=== PATIENT | female | born 1935 | race Caucasian/White ===

== ENCOUNTER 2018-01-17 03:57 | Emergency (ER) | payer MEDICARE, BC ==
[2018-01-17] MEDS ORDERED: cloNIDine 0.1 MG Tab PO ONE (04:22)
--- NOTE | 2018-01-17 04:22 | EDM.PDOC ---
ED HPI GENERAL MEDICAL PROBLEM - General Chief Complaint: Cardiovascular Problem Stated Complaint: HIGH BLOOD PRESSURE [id number] Time Seen by Provider: 01/17/18 04:19 Source of Information: Reports: Patient History Limitations: Reports: No Limitations - History of Present Illness INITIAL COMMENTS - FREE TEXT/NARRATIVE: states it all started 2 days ago when gardening bent down got dizzy head felt fuzzy. took BP can it was high. been taking BP since and always high. tonight got up to 200. denies CP/SOB/SANON. take sno Rx. 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 ED EXAM, GENERAL - Physical Exam Exam: See Below Exam Limited By: No Limitations General Appearance: Alert, WD/WN, No Apparent Distress Eye Exam: Bilateral Eye: PERRL (pupils ess ER @ 4mm) Ears: Hearing Grossly Normal Throat/Mouth: Normal Voice, No Airway Compromise Head: Atraumatic Neck: Non-Tender, Full Range of Motion Respiratory/Chest: No Respiratory Distress Cardiovascular: Regular Rate, Rhythm GI/Abdominal: Soft, Non-Tender Neurological: Alert, Oriented, Normal Cognition, Normal Gait, No Motor/Sensory Deficits Psychiatric: Normal Affect, Normal Mood Skin Exam: Warm, Dry, Normal Color Lymphatic: No Adenopathy Course - Vital Signs Last Recorded V/S: Last Vital Signs Temp 36.2 C 01/17/18 04:03 Pulse 63 01/17/18 04:25 Resp 18 01/17/18 04:03 BP 162/71 H 01/17/18 04:28 Pulse Ox 99 01/17/18 04:25 - Orders/Labs/Meds Orders: Active Orders 24 hr Category Date Time Status EKG Documentation Completion [RC] URGENT Care 01/17/18 04:05 Active COMPREHENSIVE METABOLIC PN,CMP [CHEM] Stat Lab 01/17/18 04:20 Results TROPONIN I [CHEM] Stat Lab 01/17/18 04:20 Results Labs: Laboratory Tests 01/17/18 01/17/18 Range/Units 04:20 04:20 WBC 4.7 L (5.0-10.0) 10^3/uL RBC 3.80 L (4.2-5.4) 10^6/uL Hgb 12.5 (12.0-16.0) g/dL Hct 37.8 (37.0-47.0) % MCV 99.5 (80-100) fL MCH 32.9 (27.0-34.0) pg MCHC 33.1 (33.0-35.0) g/dL Plt Count 177 (150-450) 10^3/uL Neut % (Auto) 52.3 (42.2-75.2) % Lymph % (Auto) 33.1 (20.5-50.1) % [place] % (Auto) 9.4 H (2-8) % Eos % (Auto) 4.1 H (1.0-3.0) % Baso % (Auto) 1.1 H (0.0-1.0) % Sodium 140 (135-145) mmol/L Potassium 4.3 (3.6-5.0) mmol/L Chloride 104 (101-111) mmol/L Carbon Dioxide 30.0 (21.0-31.0) mmol/L Anion Gap 10.3 BUN 14 (7-18) mg/dL Glucose 80 (74-105) mg/dL Calcium 9.1 (8.4-10.2) mg/dl Total Bilirubin 0.8 (0.2-1.0) mg/dL AST 19 (10-42) IU/L ALT 20 (10-60) IU/L Alkaline Phosphatase 46 (42-121) IU/L Troponin I < 0.02 (0.00-0.02) ng/ml Total Protein 6.3 L (6.7-8.2) g/dl Albumin 4.1 (3.2-5.5) g/dl Globulin 2.2 Albumin/Globulin Ratio 1.86 Meds: Medications Discontinued Medications Generic Name Dose Route Start Last Admin Trade Name Colin PRN Reason Stop Dose Admin Clonidine HCl 0.1 mg 01/17/18 04:22 01/17/18 04:28 Catapres PO 01/17/18 04:23 0.1 mg ONETIME ONE Administration - Re-Assessments/Exams Free Text/Narrative Re-Assessment/Exam: 01/17/18 04:54 s/p catapress BP 126/83. pt feels fine without c/o Departure - Departure Time of Disposition: 04:54 Disposition: Home, Self-Care 01 Condition: Good Clinical Impression: Hypertension Qualifiers: Hypertension type: unspecified Qualified Code(s): I10 - Essential (primary) hypertension Instructions: Hypertension, [id number] Forms: ED Department Discharge Additional Instructions: 1) monitor BP 3 times daily 2) recheck if there is any change or concern 3) see clinic Thursday for follow up rx given; catapress0.1mg daily x 6 - My Orders Last 24 Hours: My Active Orders 01/17/18 04:05 EKG Documentation Completion [RC] URGENT 01/17/18 04:20 COMPREHENSIVE METABOLIC PN,CMP [CHEM] Stat TROPONIN I [CHEM] Stat - Assessment/Plan Last 24 Hours: My Active Orders 01/17/18 04:05 EKG Documentation Completion [RC] URGENT 01/17/18 04:20 COMPREHENSIVE METABOLIC PN,CMP [CHEM] Stat TROPONIN I [CHEM] Stat
[2018-01-17 04:25] VITALS: BP 162/71
[2018-01-17 04:45] LABS: ANION GAP 10.3; CHLORIDE,CL 104 mmol/L (101-111); SODIUM,NA 140 mmol/L (135-145)
--- NOTE | 2018-01-18 16:46 | EKG ---
01/17/2018 - BRIAN HARRISON - TIME: 4:06 a.m. FINDINGS: As per my reading, sinus rhythm at 60. [facility] /[id number]
== END 2018-01-17 05:02 | disposition home or self-care (01) ==
LOC: DL.ED 03:57
DX: I10 Essential (primary) hypertension (principal); F17.210 Nicotine dependence, cigarettes, uncomplicated; Z88.2 Allergy status to sulfonamides
CPT/HCPCS: 36415; 80053; 84484; 85025; 93005; 93010; 99283; A9270

== ENCOUNTER 2020-02-15 10:12 | Day surgery (SDC) | payer MEDICARE, BC ==
[2020-02-15] MEDS ORDERED: Dexamethasone 4 MG/ML SDV IV ONE (10:13)
[2020-02-15] MEDS ORDERED: Midazolam 1 MG/ML 2 ML SDV IV ONE (10:13)
[2020-02-15] MEDS ORDERED: Sodium Chloride 0.9% 10 ML Syringe IV ONE (10:13)
[2020-02-15] MEDS ORDERED: Moxifloxacin 0.5% Ophth Soln 3 ML Bottle EYELF ONE (10:45)
[2020-02-15] MEDS ORDERED: Sodium Chloride 0.9% 10 ML Syringe FLUSH PRN (10:45)
[2020-02-15] MEDS ORDERED: Phenylephrine 10% Ophth Soln 5 ML Bot EYELF PRN (10:45)
[2020-02-15] MEDS ORDERED: Phenylephrine 10% Ophth Soln 5 ML Bot EYELF ONE (10:45)
[2020-02-15] MEDS ORDERED: Tropicamide 1% Ophth Soln 15 ML Bottle EYELF ONE (10:45)
[2020-02-15] MEDS ORDERED: Acetaminophen 325 MG Tab PO PRN (10:45)
[2020-02-15] MEDS ORDERED: Dilation Soln 1 EA EACH EYELF ONE (10:45)
[2020-02-15] MEDS ORDERED: Proparacaine 0.5% Ophth Soln 15 ML Bottle EYELF ONE (10:45)
[2020-02-15] MEDS ORDERED: Ondansetron 4 MG/2 ML SDV IVPUSH PRN (10:45)
[2020-02-15] MEDS ORDERED: Povidone-Iodine 5% Sterile Ophth Soln 30 ML Bottle EYELF ONE ×2 (10:45→11:22)
[2020-02-15] MEDS ORDERED: Timolol Maleate 0.5% Ophth Soln 5 ML Bottle EYELF ONE (10:45)
[2020-02-15 10:57] VITALS: PULSE 60
[2020-02-15] MEDS ORDERED: Apraclonidine 0.5% Ophth Soln 5 ML Bot EYELF ONE (11:22)
[2020-02-15] MEDS ORDERED: Diclofenac Sodium 0.1% Ophth Soln 5 ML Bottle EYELF ONE (11:22)
[2020-02-15] MEDS ORDERED: Lidocaine 1% 30 ML SDV ONE (11:22)
[2020-02-15] MEDS ORDERED: Tetracaine HCl/PF 0.5% 4 ML Bottle EYELF ONE (11:22)
[2020-02-15] MEDS ORDERED: Dexamethasone/Tobramycin 0.1-0.3% Ophth Oint 3.5 GM Tube EYELF ONE (11:23)
[2020-02-15] MEDS ORDERED: Chondroitin Sulfate/Hyaluronate Sodium Ophth Inj 0.75 ML Syringe EYELF ONE (11:23)
[2020-02-15] MEDS ORDERED: Balanced Salt Solution Ophth Irrig 500 ML Bottle IOCULAR ONE (11:23)
[2020-02-15] MEDS ORDERED: Vancomycin 500 MG SDV EYELF ONE (11:23)
[2020-02-15 12:17] VITALS: BP 123/66
--- NOTE | 2020-02-15 14:15 | OR ---
DATE: 02/15/2020 PREOPERATIVE DIAGNOSIS: Visually significant mixed cataract, left eye. POSTOPERATIVE DIAGNOSIS: Visually significant mixed cataract, left eye. PROCEDURE: Extracapsular cataract extraction with intraocular lens implant, left eye. ANESTHESIA: Topical/local MAC. COMPLICATIONS: None. INDICATION: Ms. Gonzales was seen in the clinic. She is unhappy with vision noticing a progressive change. Her examination revealed visually significant mixed cataract. I explained options, offered cataract surgery, and I explained risks, including, but not limited to, infection, retinal detachment, loss of vision, need for additional surgery, and risks associated with anesthesia, amongst others. We discussed implant options. She requested surgery with a toric implant. OPERATIVE DESCRIPTION: After informed consent was obtained and the risks, benefits, and alternatives were explained, the patient was brought to the operative suite and topical anesthesia was administered. The patient was then prepped and draped in the sterile fashion and attention was placed on the left eye. A sterile lid speculum was placed into the left eye to allow operative exposure. A full-thickness paracentesis was made in the temporal portion of the operative eye. Preservative-free lidocaine 0.1 mL was injected into the anterior chamber followed by viscoelastic. A full-thickness corneal incision was then made into the anterior chamber. A bent needle cystotome was used to create a small edgar in the anterior capsule. The capsulorrhexis forceps was then used to create a 360-degree curvilinear capsulorrhexis. The nucleus was then removed using a phacoemulsification handpiece and the remaining cortical material was then removed with irrigation and aspiration handpiece. Following removal of the cortical material, the capsular bag was then inspected and noted to be free of any holes or tears. Viscoelastic was then injected into the capsular bag and the intraocular lens was inserted into the capsular bag. The implant was oriented to correspond with preoperative corneal amaya made with the patient in the upright position. The viscoelastic material was then removed from both the anterior and posterior chambers and from behind the IOL. The lens and capsular bag were then reinspected. The IOL was well centered and the capsular bag intact. The wound and paracentesis sites were inspected and hydrated with balanced saline solution. Both were found to be self-sealing. The intraocular pressure was assessed digitally and found to be within normal range. A good red reflex was noted at the completion of the procedure. No complications occurred during the operation. At the completion of the procedure, Maxitrol, Voltaren, and Iopidine drops were placed into the operative eye. A sterile eye shield was placed over the operative eye and the patient was transported to the postoperative recovery area having tolerated the procedure well. Postoperative instructions were given along with a postoperative appointment. The patient was advised to call with any questions or concerns. [facility] /[id number]
== END 2020-02-15 12:18 | disposition home or self-care (01) ==
LOC: DL.SDS 10:12
PROVIDERS: ATTEND Ophthalmology
DX: H26.493 Other secondary cataract, bilateral (principal); F17.210 Nicotine dependence, cigarettes, uncomplicated; I10 Essential (primary) hypertension; F51.04 Psychophysiologic insomnia; Z79.899 Other long term (current) drug therapy
CPT/HCPCS: 00142; A9270-GY; J1100; J2001; J2250; J3370

== ENCOUNTER 2020-03-20 08:13 | Observation (INO) | payer MEDICARE, BC ==
[~2020-03-20 08:13] MED LIST: Sodium Chloride 0.9% 10 ML Syringe FLUSH PRN
[2020-03-20 09:24] LABS: ANION GAP 12.1 mEq/L (7-13)
[2020-03-20] MEDS ORDERED: Ondansetron 4 MG/2 ML SDV IVPUSH ONE (09:33)
[2020-03-20] MEDS ORDERED: Sodium Chloride 0.9% 1,000 ML IV ONE (09:36)
--- NOTE | 2020-03-20 09:42 | EDM.PDOC ---
ED HPI GENERAL MEDICAL PROBLEM - General Chief Complaint: Gastrointestinal Problem Stated Complaint: CALL IN Time Seen by Provider: 03/20/20 08:30 Source of Information: Reports: Patient, RN, RN Notes Reviewed History Limitations: Reports: No Limitations - History of Present Illness INITIAL COMMENTS - FREE TEXT/NARRATIVE: Patient presents to the ED via personal vehicle with complaints of nausea, vomiting, and diffuse rash. Per the patient the rash began about three weeks ago on her left leg, it then spread upward to her trunk and extremities. She received treatment for this rash two and half weeks ago, including Cephalexin and Prednisone, which she states made the rash worse. She relates the rash as itchy at times, but describes it as painful in nature. She denies changes to diet, lotions, soaps, or medications. She states she has been washing her clothes in clear water since her rash began. The patient relates her nausea and vomiting began one week ago. She denies cough, shortness of breath, fever, shaking chills, dysuria, hematuria, melena, hematochezia, or changes to her bowel/bladder patterns. She has not taken any medications for the nausea and vomiting. - Related Data Allergies Allergy/AdvReac Type Severity Reaction Status Date / Time Sulfa (Sulfonamide Allergy Rash Verified 02/14/20 13:05 Antibiotics) Home Meds: Home Meds Lisinopril/Hydrochlorothiazide [Lisinopril-Hctz 10-12.5 mg Tab] 1 each PO DAILY 04/11/19 [History] metOLazone [Metolazone] 5 mg PO DAILY 02/14/20 [History] Past Medical History - Past Health History Medical/Surgical History: Denies Medical/Surgical History HEENT History: Reports: Cataract, Impaired Vision Cardiovascular History: Reports: Hypertension Respiratory History: Reports: PE, Pneumonia, Recurrent Gastrointestinal History: Reports: None Genitourinary History: Reports: UTI, Recurrent 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: , 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 Neurological History: Reports: Other (See Below) Other Neuro History: insomnia Psychiatric History: Reports: None Endocrine/Metabolic History: Reports: Osteopenia Hematologic History: Reports: None Immunologic History: Reports: None Oncologic (Cancer) History: Reports: Uterine Dermatologic History: Reports: None - Infectious Disease History Infectious Disease History: Reports: Chicken Pox, Shingles - Past Surgical History HEENT Surgical History: Reports: None Cardiovascular Surgical History: Reports: None GI Surgical History: Reports: None Female Surgical History: Reports: D&C, Hysterectomy, Other (See Below) Other Female Surgeries/Procedures: bladder surg Neurological Surgical History: Reports: Laminectomy Musculoskeletal Surgical History: Reports: Shoulder Replacement, Other (See Below) Other Musculoskeletal Surgeries/Procedures:: knee and toes surg Social & Family History - Family History Family Medical History: Noncontributory - Tobacco Use Tobacco Use Status *Q: Never Tobacco User - Caffeine Use Caffeine Use: Reports: Coffee Caffeine Use Comment: 8 oz - Recreational Drug Use Recreational Drug Use: No ED ROS GENERAL - Review of Systems Review Of Systems: Comprehensive ROS is negative, except as noted in HPI. ED EXAM, GI/ABD - Physical Exam Exam: See Below Exam Limited By: No Limitations General Appearance: Alert, WD/WN, No Apparent Distress Eyes: Bilateral: EOMI Throat/Mouth: Normal Inspection, Normal Voice, No Airway Compromise Head: Atraumatic, Normocephalic Neck: Normal Inspection, Supple, Non-Tender Respiratory/Chest: No Respiratory Distress, Lungs Clear, Normal Breath Sounds, No Accessory Muscle Use, Chest Non-Tender Cardiovascular: Normal Peripheral Pulses, Regular Rate, Rhythm, No Edema, No Gallop, No Murmur, No Rub GI/Abdominal Exam: Normal Bowel Sounds, Soft, Non-Tender, No Distention, No Mass, Pelvis Stable (Female) Exam: Deferred Rectal (Female) Exam: Deferred Back Exam: Normal Inspection. No: CVA Tenderness (L), CVA Tenderness (R) Extremities: Normal Range of Motion, No Pedal Edema, Normal Capillary Refill Neurological: Alert, Oriented, CN II-XII Intact, No Motor/Sensory Deficits Skin Exam: Dry, Erythema (Surrounding rash), Rash (Diffuse macular rash to all extremities and back; ) Course - Vital Signs Last Recorded V/S: Last Vital Signs Temp 96.2 F L 03/20/20 08:14 Pulse 83 03/20/20 08:14 Resp 14 03/20/20 08:14 BP 129/71 03/20/20 08:14 Pulse Ox 94 L 03/20/20 08:14 - Orders/Labs/Meds Orders: Active Orders 24 hr Category Date Time Status Admission Diagnosis [ADT] Routine ADT 03/20/20 10:28 Ordered Admission Status [Patient Status] [ADT] Routine ADT 03/20/20 10:28 Active Peripheral IV Care [RC] . DIRECTED Care 03/20/20 08:08 Active CULTURE BLOOD [BC] Stat Lab 03/20/20 08:52 Received CULTURE BLOOD [BC] Stat Lab 03/20/20 08:57 Received UA W/CARMENCITA RFLX IF INDICATED [URIN] Stat Lab 03/20/20 08:07 Ordered Sodium Chloride 0.9% [Normal Saline] 1,000 ml Med 03/20/20 09:36 Active IV .BOLUS Blood Culture x2 Reflex Set [OM.PC] Stat Oth 03/20/20 08:07 Ordered Isolation [COMM] Routine Oth 03/20/20 09:19 Active Peripheral IV Insertion Adult [OM.PC] Stat Oth 03/20/20 08:07 Ordered Medication Orders Sodium Chloride (Normal Saline) 1,000 mls @ 999 mls/hr IV .BOLUS ONE Stop: 03/20/20 10:36 Last Admin: 03/20/20 09:51 Dose: 999 mls/hr Documented by: JULIANA Labs: Laboratory Tests 03/20/20 03/20/20 03/20/20 Range/Units 08:07 08:52 08:52 WBC (5.0-10.0) 10^3/uL RBC (4.2-5.4) 10^6/uL Hgb (12.0-16.0) g/dL Hct (37.0-47.0) % MCV (80-100) fL MCH (27.0-34.0) pg MCHC (33.0-35.0) g/dL Plt Count (150-450) 10^3/uL Neut % (Auto) (42.2-75.2) % Lymph % (Auto) (20.5-50.1) % [place] % (Auto) (2-8) % Eos % (Auto) (1.0-3.0) % Baso % (Auto) (0.0-1.0) % Sodium 135 L (136-145) mmol/L Potassium 4.1 (3.5-5.1) mmol/L Chloride 98 (98-107) mmol/L Carbon Dioxide 29 (21-32) mmol/L Anion Gap 12.1 (7-13) mEq/L BUN 33 H (7-18) mg/dL Creatinine 1.20 H (0.55-1.02) mg/dL Est Cr Clr Drug Dosing 28.24 mL/min Estimated GFR (MDRD) 43 BUN/Creatinine Ratio 27.5 (No establ ref range) Glucose 99 (74-99) mg/dL Lactic Acid 1.0 (0.4-2.0) mmol/L Calcium 8.9 (8.5-10.1) mg/dL Phosphorus 4.1 (2.6-4.7) mg/dL Magnesium 2.1 (1.8-2.4) mg/dL Total Bilirubin 0.5 (0.2-1.0) mg/dL AST 10 L (15-37) U/L ALT 14 (14-59) U/L Alkaline Phosphatase 53 (46-116) U/L Total Protein 6.2 L (6.4-8.2) g/dL Albumin 3.3 L (3.4-5.0) g/dL Globulin 2.9 Albumin/Globulin Ratio 1.14 SARS CoV-2 RNA Rapid EYAD Negative (NEGATIVE) 03/20/20 Range/Units 08:57 WBC 8.3 (5.0-10.0) 10^3/uL RBC 3.41 L (4.2-5.4) 10^6/uL Hgb 11.3 L (12.0-16.0) g/dL Hct 33.7 L (37.0-47.0) % MCV 98.8 (80-100) fL MCH 33.1 (27.0-34.0) pg MCHC 33.5 (33.0-35.0) g/dL Plt Count 313 (150-450) 10^3/uL Neut % (Auto) 76.7 H (42.2-75.2) % Lymph % (Auto) 13.9 L (20.5-50.1) % [place] % (Auto) 7.4 (2-8) % Eos % (Auto) 1.8 (1.0-3.0) % Baso % (Auto) 0.2 (0.0-1.0) % Sodium (136-145) mmol/L Potassium (3.5-5.1) mmol/L Chloride (98-107) mmol/L Carbon Dioxide (21-32) mmol/L Anion Gap (7-13) mEq/L BUN (7-18) mg/dL Creatinine (0.55-1.02) mg/dL Est Cr Clr Drug Dosing mL/min Estimated GFR (MDRD) BUN/Creatinine Ratio (No establ ref range) Glucose (74-99) mg/dL Lactic Acid (0.4-2.0) mmol/L Calcium (8.5-10.1) mg/dL Phosphorus (2.6-4.7) mg/dL Magnesium (1.8-2.4) mg/dL Total Bilirubin (0.2-1.0) mg/dL AST (15-37) U/L ALT (14-59) U/L Alkaline Phosphatase (46-116) U/L Total Protein (6.4-8.2) g/dL Albumin (3.4-5.0) g/dL Globulin Albumin/Globulin Ratio SARS CoV-2 RNA Rapid EYAD (NEGATIVE) Meds: Medications Generic Name Dose Route Start Last Admin Trade Name Freq PRN Reason Stop Dose Admin Sodium Chloride 1,000 mls @ 999 mls/hr 03/20/20 09:36 03/20/20 09:51 Normal Saline IV 03/20/20 10:36 999 mls/hr .BOLUS ONE Administration Discontinued Medications Generic Name Dose Route Start Last Admin Trade Name Freq PRN Reason Stop Dose Admin Ondansetron HCl 4 mg 03/20/20 09:33 03/20/20 09:51 Zofran IVPUSH 03/20/20 09:34 4 mg ONETIME ONE Administration Sodium Chloride 10 ml 03/20/20 08:07 03/20/20 09:53 Saline Flush FLUSH 10 ml ASDIRECTED PRN Administration Keep Vein Open - Re-Assessments/Exams Free Text/Narrative Re-Assessment/Exam: 03/20/20 10:35 Patient to be admitted to observation under the care of Dr. Reid for rehydration and pain management. Departure - Departure Time of Disposition: 10:35 Disposition: Refer to Observation Condition: Good Clinical Impression: Dehydration, Rash and nonspecific skin eruption - Discharge Information Forms: ED Department Discharge Sepsis Event Note (ED) - Evaluation Sepsis Screening Result: No Definite Risk - Focused Exam Vital Signs: Vital Signs Temp Pulse Resp BP Pulse Ox 03/20/20 08:14 96.2 F L 83 14 129/71 94 L - My Orders Last 24 Hours: My Active Orders 03/20/20 08:07 UA W/CARMENCITA RFLX IF INDICATED [URIN] Stat Blood Culture x2 Reflex Set [OM.PC] Stat Peripheral IV Insertion Adult [OM.PC] Stat 03/20/20 08:08 Peripheral IV Care [RC] . DIRECTED 03/20/20 08:52 CULTURE BLOOD [BC] Stat 03/20/20 08:57 CULTURE BLOOD [BC] Stat 03/20/20 09:19 Isolation [COMM] Routine 03/20/20 09:36 Sodium Chloride 0.9% [Normal Saline] 1,000 ml IV .BOLUS 03/20/20 10:28 Admission Diagnosis [ADT] Routine Admission Status [Patient Status] [ADT] Routine - Assessment/Plan Last 24 Hours: My Active Orders 03/20/20 08:07 UA W/CARMENCITA RFLX IF INDICATED [URIN] Stat Blood Culture x2 Reflex Set [OM.PC] Stat Peripheral IV Insertion Adult [OM.PC] Stat 03/20/20 08:08 Peripheral IV Care [RC] . DIRECTED 03/20/20 08:52 CULTURE BLOOD [BC] Stat 03/20/20 08:57 CULTURE BLOOD [BC] Stat 03/20/20 09:19 Isolation [COMM] Routine 03/20/20 09:36 Sodium Chloride 0.9% [Normal Saline] 1,000 ml IV .BOLUS 03/20/20 10:28 Admission Diagnosis [ADT] Routine Admission Status [Patient Status] [ADT] Routine
[2020-03-20] MEDS ORDERED: Docusate Sodium 100 MG Cap PO PRN (11:01)
[2020-03-20] MEDS ORDERED: Ondansetron 4 MG Tab.DIS PO PRN (11:01)
[2020-03-20] MEDS ORDERED: Ondansetron 4 MG/2 ML SDV IVPUSH PRN (11:01)
--- NOTE | 2020-03-20 12:42 | PCM.HP ---
H&P History of Present Illness - General Date of Service: 03/20/20 Admit Problem/Dx: Admission Diagnosis/Problem Admission Diagnosis/Problem Dehydration Source of Information: Patient, Provider History Limitations: Reports: No Limitations - History of Present Illness Initial Comments - Free Text/Narative: Patient is an 84-year-old female with a medical history of hypertension who presented to the ED with complaints of nausea, vomiting and a diffuse rash. She reports that 3 weeks ago she developed a rash that began on her right leg and spread proximally up to her trunk and back. The rash is itchy, scaly and red. Over time the rash has become painful as well. The rash covers the entirety of her back. She was seen by her doctor and given cephalexin and prednisone. She reports that this is not made any difference to the rash and the rash continued to progress. She denies any history of allergies. She denies any lice. She reports that she had shingles several years ago and thinks the rash is similar. For the past 1 week patient has been having nausea and emesis frequently every day. She denies abdominal pain but notes generalized weakness. She denies fever. In the ER, vital signs were stable and normal. Labs significant for creatinine of 1.2, hemoglobin of 11.3, urinalysis with positive leukocyte esterase. Covid 19 test was negative. Patient was admitted for SANTA with dehydration. - Related Data Allergies/Adverse Reactions: Allergies Allergy/AdvReac Type Severity Reaction Status Date / Time Sulfa (Sulfonamide Allergy Rash Verified 03/20/20 11:29 Antibiotics) Home Medications: Home Meds Lisinopril/Hydrochlorothiazide [Lisinopril-Hctz 10-12.5 mg Tab] 1 each PO DAILY 04/11/19 [History] metOLazone [Metolazone] 5 mg PO DAILY 02/14/20 [History] Acetaminophen [Tylenol] 650 mg PO Q4H PRN 03/20/20 [History] Naproxen Sodium [Aleve] 440 mg PO BID PRN 03/20/20 [History] Zolpidem [Ambien] 5 mg PO BEDTIME PRN 03/20/20 [History] Past Medical History - Past Health History Medical/Surgical History: Denies Medical/Surgical History HEENT History: Reports: Cataract, Impaired Vision Cardiovascular History: Reports: Hypertension Respiratory History: Reports: PE, Pneumonia, Recurrent Gastrointestinal History: Reports: None Genitourinary History: Reports: Urinary Incontinence, UTI, Recurrent Other Genitourinary History: Stress incontinence FUR JOINER History: Reports: , Spontaneous Neurological History: Reports: Other (See Below) Other Neuro History: insomnia Psychiatric History: Reports: None Endocrine/Metabolic History: Reports: Osteopenia Hematologic History: Reports: None Immunologic History: Reports: None Oncologic (Cancer) History: Reports: Uterine Dermatologic History: Reports: None - Infectious Disease History Infectious Disease History: Reports: Chicken Pox, Shingles - Past Surgical History HEENT Surgical History: Reports: Cataract Surgery Cardiovascular Surgical History: Reports: None Respiratory Surgical History: Reports: None GI Surgical History: Reports: Colonoscopy Female Surgical History: Reports: D&C, Hysterectomy, Salpingo-Oophorectomy Neurological Surgical History: Reports: Laminectomy Musculoskeletal Surgical History: Reports: Shoulder Replacement, Other (See Below) Other Musculoskeletal Surgeries/Procedures:: knee and toes surg Oncologic Surgical History: Reports: None Social & Family History - Family History Family Medical History: Noncontributory - Tobacco Use Tobacco Use Status *Q: Light Tobacco User Years of Tobacco use: 50 Packs/Tins Daily: 0.1 - Caffeine Use Caffeine Use: Reports: Coffee Caffeine Use Comment: 8 oz - Alcohol Use Days Per Week of Alcohol Use: 5 Number of Drinks Per Day: 1 Total Drinks Per Week: 5 - Recreational Drug Use Recreational Drug Use: No H&P Review of Systems - Review of Systems: Review Of Systems: See Below General: Reports: Weakness HEENT: Reports: No Symptoms Pulmonary: Reports: No Symptoms Cardiovascular: Reports: No Symptoms Gastrointestinal: Reports: Nausea, Vomiting Genitourinary: Reports: No Symptoms Musculoskeletal: Reports: No Symptoms Skin: Reports: Rash Psychiatric: Reports: No Symptoms Neurological: Reports: No Symptoms Hematologic/Lymphatic: Reports: No Symptoms Immunologic: Reports: No Symptoms Exam - Exam Exam: See Below - Vital Signs Vital Signs: Last Vital Signs Temp 98.1 F 03/20/20 11:01 Pulse 58 L 03/20/20 11:01 Resp 18 03/20/20 11:01 BP 142/58 H 03/20/20 11:01 Pulse Ox 99 03/20/20 11:01 Weight: 114 lb 12.8 oz - Exam General: Alert, Oriented, 4 HEENT: PERRLA, Hearing Intact, Mucosa Moist & [place], Nares Patent, Normal Nasal Septum, Posterior Pharynx Clear, Conjunctiva Clear, EOMI, EACs Clear, TMs Clear Neck: Supple, Trachea Midline, 2 Lungs: Clear to Auscultation, Normal Respiratory Effort Cardiovascular: Regular Rate, Regular Rhythm GI/Abdominal Exam: Normal Bowel Sounds, Soft, Non-Tender, No Organomegaly, No Distention, No Abnormal Bruit, No Mass, Pelvis Stable Back Exam: Normal Inspection, Full Range of Motion, NT Extremities: Normal Inspection, Normal Range of Motion, Non-Tender, No Pedal Edema, Normal Capillary Refill Skin: Other (Scaly erythematous, papular rash. Moderate tenderness to touch.) Neurological: Cranial Nerves Intact, Reflexes Equal Bilateral Neuro Extensive - Mental Status: Alert, Oriented x3, Normal Mood/Affect, Normal Cognition Neuro Extensive - Motor, Sensory, Reflexes: CN II-XII Intact, Normal Gait, Normal Reflexes Psychiatric: Alert, Normal Affect, Normal Mood - Patient Data Lab Results Last 24 hrs: Laboratory Results - last 24 hr 03/20/20 03/20/20 03/20/20 Range/Units 08:07 08:52 08:52 WBC (5.0-10.0) 10^3/uL RBC (4.2-5.4) 10^6/uL Hgb (12.0-16.0) g/dL Hct (37.0-47.0) % MCV (80-100) fL MCH (27.0-34.0) pg MCHC (33.0-35.0) g/dL Plt Count (150-450) 10^3/uL Neut % (Auto) (42.2-75.2) % Lymph % (Auto) (20.5-50.1) % [place]chran % (Auto) (2-8) % Eos % (Auto) (1.0-3.0) % Baso % (Auto) (0.0-1.0) % Sodium 135 L (136-145) mmol/L Potassium 4.1 (3.5-5.1) mmol/L Chloride 98 (98-107) mmol/L Carbon Dioxide 29 (21-32) mmol/L Anion Gap 12.1 (7-13) mEq/L BUN 33 H (7-18) mg/dL Creatinine 1.20 H (0.55-1.02) mg/dL Est Cr Clr Drug Dosing 28.24 mL/min Estimated GFR (MDRD) 43 BUN/Creatinine Ratio 27.5 (No establ ref range) Glucose 99 (74-99) mg/dL Lactic Acid 1.0 (0.4-2.0) mmol/L Calcium 8.9 (8.5-10.1) mg/dL Phosphorus 4.1 (2.6-4.7) mg/dL Magnesium 2.1 (1.8-2.4) mg/dL Total Bilirubin 0.5 (0.2-1.0) mg/dL AST 10 L (15-37) U/L ALT 14 (14-59) U/L Alkaline Phosphatase 53 (46-116) U/L Total Protein 6.2 L (6.4-8.2) g/dL Albumin 3.3 L (3.4-5.0) g/dL Globulin 2.9 Albumin/Globulin Ratio 1.14 Urine Color (YELLOW) Urine Appearance (CLEAR) Urine pH (5.0-9.0) Ur Specific [place] (1.005-1.030) Urine Protein (NEGATIVE) Urine Glucose (UA) (NEGATIVE) Urine Ketones (NEGATIVE) Urine Occult Blood (NEGATIVE) Urine Nitrite (NEGATIVE) Urine Bilirubin (NEGATIVE) Urine Urobilinogen (0.2-1.0) mg/dL Ur Leukocyte Esterase (NEGATIVE) U Hyaline Cast (Auto) Urine RBC /HPF Urine WBC (0-5/HPF) /HPF Ur Epithelial Cells (NOT SEEN) /HPF Urine Mucus (NOT SEEN) /LPF SARS CoV-2 RNA Rapid EYAD Negative (NEGATIVE) 03/20/20 03/20/20 Range/Units 08:57 11:45 WBC 8.3 (5.0-10.0) 10^3/uL RBC 3.41 L (4.2-5.4) 10^6/uL Hgb 11.3 L (12.0-16.0) g/dL Hct 33.7 L (37.0-47.0) % MCV 98.8 (80-100) fL MCH 33.1 (27.0-34.0) pg MCHC 33.5 (33.0-35.0) g/dL Plt Count 313 (150-450) 10^3/uL Neut % (Auto) 76.7 H (42.2-75.2) % Lymph % (Auto) 13.9 L (20.5-50.1) % Cochran % (Auto) 7.4 (2-8) % Eos % (Auto) 1.8 (1.0-3.0) % Baso % (Auto) 0.2 (0.0-1.0) % Sodium (136-145) mmol/L Potassium (3.5-5.1) mmol/L Chloride (98-107) mmol/L Carbon Dioxide (21-32) mmol/L Anion Gap (7-13) mEq/L BUN (7-18) mg/dL Creatinine (0.55-1.02) mg/dL Est Cr Clr Drug Dosing mL/min Estimated GFR (MDRD) BUN/Creatinine Ratio (No establ ref range) Glucose (74-99) mg/dL Lactic Acid (0.4-2.0) mmol/L Calcium (8.5-10.1) mg/dL Phosphorus (2.6-4.7) mg/dL Magnesium (1.8-2.4) mg/dL Total Bilirubin (0.2-1.0) mg/dL AST (15-37) U/L ALT (14-59) U/L Alkaline Phosphatase (46-116) U/L Total Protein (6.4-8.2) g/dL Albumin (3.4-5.0) g/dL Globulin Albumin/Globulin Ratio Urine Color Dark yellow (YELLOW) Urine Appearance Clear (CLEAR) Urine pH 5.5 (5.0-9.0) Ur Specific [place] 1.020 (1.005-1.030) Urine Protein Negative (NEGATIVE) Urine Glucose (UA) Negative (NEGATIVE) Urine Ketones Negative (NEGATIVE) Urine Occult Blood Negative (NEGATIVE) Urine Nitrite Negative (NEGATIVE) Urine Bilirubin Negative (NEGATIVE) Urine Urobilinogen 0.2 (0.2-1.0) mg/dL Ur Leukocyte Esterase Trace H (NEGATIVE) U Hyaline Cast (Auto) Few Urine RBC 0-5 /HPF Urine WBC 0-5 (0-5/HPF) /HPF Ur Epithelial Cells Few (NOT SEEN) /HPF Urine Mucus Few H (NOT SEEN) /LPF SARS CoV-2 RNA Rapid EYAD (NEGATIVE) Result Diagrams: 03/20/20 08:57 03/20/20 08:52 George Results Last 24 hrs: Microbiology 03/20/20 09:21 Influenza Type A Antigen Screen - Final Nasal, Unspecified NEGATIVE INFLUENZA A VIRUS AG REFERENCE RANGE: NEGATIVE Influenza Type B Antigen Screen - Final NEGATIVE INFLUENZA B VIRUS AG REFERENCE RANGE: NEGATIVE Problem List Initiated/Reviewed/Updated: Yes Orders Last 24hrs: Active Orders 24 hr Category Date Time Status Admission Diagnosis [ADT] Stat ADT 03/20/20 10:33 Ordered Admission Status [Patient Status] [ADT] Routine ADT 03/20/20 10:33 Active Antiembolic Devices [RC] Care 03/20/20 11:03 Active Intake and Output [RC] QSHIFT Care 03/20/20 11:02 Active Oxygen Therapy [RC] PRN Care 03/20/20 11:01 Active Up ad Riya [RC] ASDIRECTED Care 03/20/20 11:01 Active VTE/DVT Education [RC] PER UNIT ROUTINE Care 03/20/20 11:01 Active Vital Signs [RC] Q4H Care 03/20/20 11:01 Active Regular Diet [DIET] Diet 03/20/20 Lunch Active BASIC METABOLIC PANEL,BMP [CHEM] AM Lab 03/21/20 05:11 Ordered CBC W/O DIFF,HEMOGRAM [HEME] AM Lab 03/21/20 05:11 Ordered CULTURE BLOOD [BC] Stat Lab 03/20/20 08:52 Received CULTURE BLOOD [BC] Stat Lab 03/20/20 08:57 Received MAGNESIUM [CHEM] AM Lab 03/21/20 05:11 Ordered MISC TEST Routine Lab 03/20/20 12:00 Ordered UA W/GEORGE RFLX IF INDICATED [URIN] Stat Lab 03/20/20 11:45 Ordered UA W/MICROSCOPIC [URIN] Stat Lab 03/20/20 11:45 Ordered Acetaminophen [TylenoL] Med 03/20/20 11:01 Active 650 mg PO Q4H PRN Docusate Sodium [Colace] Med 03/20/20 11:01 Active 100 mg PO BID PRN Heparin Sodium Med 03/20/20 14:00 Active 5,000 units SUBCUT Q8HR Ondansetron [Zofran ODT] Med 03/20/20 11:01 Active 4 mg PO Q4H PRN Ondansetron [Zofran] Med 03/20/20 11:01 Active 4 mg IVPUSH Q4H PRN Sodium Chloride 0.9% [Normal Saline] 1,000 ml Med 03/20/20 11:15 Active IV ASDIRECTED diphenhydrAMINE [Benadryl] Med 03/20/20 12:34 Ordered 25 mg PO QID PRN oxyCODONE Med 03/20/20 11:01 Active 5 mg PO Q4H PRN Antiembolic Hose [OM.PC] Per Unit Routine Ot 03/20/20 11:02 Ordered Blood Culture x2 Reflex Set [OM.PC] Stat Ot 03/20/20 08:07 Ordered Isolation [COMM] Routine Ot 03/20/20 09:19 Active Peripheral IV Insertion Adult [OM.PC] Stat Ot 03/20/20 08:07 Ordered Resuscitation Status Routine Resus Stat 03/20/20 11:01 Ordered Medication Orders Acetaminophen (Tylenol) 650 mg PO Q4H PRN PRN Reason: Pain (Mild 1-3)/fever Diphenhydramine HCl (Benadryl) 25 mg PO QID PRN PRN Reason: Itching Docusate Sodium (Colace) 100 mg PO BID PRN PRN Reason: Constipation Heparin Sodium (Porcine) (Heparin Sodium) 5,000 units SUBCUT Q8HR [facility] Sodium Chloride (Normal Saline) 1,000 mls @ 75 mls/hr IV ASDIRECTED [place] Ondansetron HCl (Zofran Odt) 4 mg PO Q4H PRN PRN Reason: nausea, able to take PO Ondansetron HCl (Zofran) 4 mg IVPUSH Q4H PRN PRN Reason: Nausea/Vomiting Oxycodone HCl (Oxycodone) 5 mg PO Q4H PRN PRN Reason: Pain (moderate 4-6) Assessment/Plan Comment:: SANTA Dehydration Creatinine elevated to 1.2 from baseline of 0.8. Likely due to emesis. IV fluids normal saline bolus given, continue with maintenance IV fluid at 75 cc/h Repeat BMP tomorrow Strict I's and O's Erythematous papular rash Differentials include dermatitis versus shingles. Dermatome does not conform to shingles less probably disseminated. Obtain shingles PCR Benadryl as needed for itching UTI Start ceftriaxone Hypertension Hold antihypertensives for now
[2020-03-20] MEDS: Sodium Chloride 0.9% 1,000 ML IV SCH (13:42)
[2020-03-20] MEDS: Acetaminophen 325 MG Tab PO PRN ×2 (13:53→21:05)
[2020-03-20] MEDS: diphenhydrAMINE 25 MG Tab PO PRN ×2 (13:54→21:06)
[2020-03-20] MEDS: Heparin Sodium 5,000 Units/ML Vial SUBCUT SCH ×2 (13:54→21:04)
[2020-03-20] MEDS: cefTRIAXone 1 GM in Sodium Chloride 0.9% 50 ML IV SCH (13:54)
[2020-03-21] MEDS: Sodium Chloride 0.9% 1,000 ML IV SCH (03:07)
[2020-03-21] MEDS: diphenhydrAMINE 25 MG Tab PO PRN ×2 (03:09→21:25)
[2020-03-21] MEDS: oxyCODONE 5 MG Tab PO PRN ×2 (03:09→21:25)
[2020-03-21] MEDS: Heparin Sodium 5,000 Units/ML Vial SUBCUT SCH ×3 (05:46→21:26)
[2020-03-21 07:11] LABS: ANION GAP 8.6 mEq/L (7-13); CHLORIDE,CL 105 mmol/L (98-107); SODIUM,NA 138 mmol/L (136-145)
--- NOTE | 2020-03-21 12:10 | PCM.PN ---
- General Info Date of Service: 03/21/20 Admission Dx/Problem (Free Text): Admission Diagnosis/Problem Admission Diagnosis/Problem Dehydration Subjective Update: Patient seen and examined today. Afebrile. No acute events overnight. Still has itching and sometimes burning pain from the rash. Symptoms controlled by Tylenol and Benadryl. No new rashes. Functional Status: Reports: Pain Controlled - Review of Systems General: Reports: No Symptoms HEENT: Reports: No Symptoms Pulmonary: Reports: No Symptoms Cardiovascular: Reports: No Symptoms Gastrointestinal: Reports: No Symptoms Genitourinary: Reports: No Symptoms Musculoskeletal: Reports: No Symptoms Skin: Reports: Rash Neurological: Reports: No Symptoms Psychiatric: Reports: No Symptoms - Patient Data Vitals - Most Recent: Last Vital Signs Temp 98.2 F 03/21/20 08:29 Pulse 86 03/21/20 08:29 Resp 18 03/21/20 08:29 BP 99/61 03/21/20 08:29 Pulse Ox 97 03/21/20 08:29 Weight - Most Recent: 114 lb 12.8 oz I&O - Last 24 Hours: Intake & Output 03/20/20 03/21/20 03/21/20 22:59 06:59 14:59 Intake Total 290 180 Output Total 350 300 Balance -60 -300 180 Lab Results Last 24 Hours: Laboratory Results - last 24 hr 03/20/20 03/21/20 03/21/20 Range/Units 11:45 06:15 06:15 WBC 5.8 (5.0-10.0) 10^3/uL RBC 2.96 L (4.2-5.4) 10^6/uL Hgb 9.7 L D (12.0-16.0) g/dL Hct 30.0 L (37.0-47.0) % MCV 101.4 H (80-100) fL MCH 32.8 (27.0-34.0) pg MCHC 32.3 L (33.0-35.0) g/dL Plt Count 262 (150-450) 10^3/uL Sodium 138 (136-145) mmol/L Potassium 4.6 (3.5-5.1) mmol/L Chloride 105 (98-107) mmol/L Carbon Dioxide 29 (21-32) mmol/L Anion Gap 8.6 (7-13) mEq/L BUN 21 H (7-18) mg/dL Creatinine 0.82 (0.55-1.02) mg/dL Est Cr Clr Drug Dosing 41.98 mL/min Estimated GFR (MDRD) > 60 Glucose 86 (74-99) mg/dL Calcium 8.5 (8.5-10.1) mg/dL Magnesium 1.9 (1.8-2.4) mg/dL Urine Color Dark yellow (YELLOW) Urine Appearance Clear (CLEAR) Urine pH 5.5 (5.0-9.0) Ur Specific [place] 1.020 (1.005-1.030) Urine Protein Negative (NEGATIVE) Urine Glucose (UA) Negative (NEGATIVE) Urine Ketones Negative (NEGATIVE) Urine Occult Blood Negative (NEGATIVE) Urine Nitrite Negative (NEGATIVE) Urine Bilirubin Negative (NEGATIVE) Urine Urobilinogen 0.2 (0.2-1.0) mg/dL Ur Leukocyte Esterase Trace H (NEGATIVE) U Hyaline Cast (Auto) Few Urine RBC 0-5 /HPF Urine WBC 0-5 (0-5/HPF) /HPF Ur Epithelial Cells Few (NOT SEEN) /HPF Urine Mucus Few H (NOT SEEN) /LPF George Results Last 24 Hours: Microbiology 03/20/20 08:57 Aerobic Blood Culture - Preliminary Blood - Arm, Right NO GROWTH AFTER 1 DAY Anaerobic Blood Culture - Preliminary NO GROWTH AFTER 1 DAY 03/20/20 08:52 Aerobic Blood Culture - Preliminary Blood - Arm, Left NO GROWTH AFTER 1 DAY Anaerobic Blood Culture - Preliminary NO GROWTH AFTER 1 DAY 03/20/20 11:45 Urine Culture - Preliminary Urine, Clean Catch 03/20/20 09:21 Influenza Type A Antigen Screen - Final Nasal, Unspecified NEGATIVE INFLUENZA A VIRUS AG REFERENCE RANGE: NEGATIVE Influenza Type B Antigen Screen - Final NEGATIVE INFLUENZA B VIRUS AG REFERENCE RANGE: NEGATIVE Med Orders - Current: Current Medications Acetaminophen (Tylenol) 650 mg PO Q4H PRN PRN Reason: Pain (Mild 1-3)/fever Last Admin: 03/20/20 21:05 Dose: 650 mg Documented by: Diphenhydramine HCl (Benadryl) 25 mg PO QID PRN PRN Reason: Itching Last Admin: 03/21/20 03:09 Dose: 25 mg Documented by: Docusate Sodium (Colace) 100 mg PO BID PRN PRN Reason: Constipation Heparin Sodium (Porcine) (Heparin Sodium) 5,000 units SUBCUT Q8HR [facility] Last Admin: 03/21/20 05:46 Dose: 5,000 units Documented by: Sodium Chloride (Normal Saline) 1,000 mls @ 75 mls/hr IV ASDIRECTED [facility] Last Admin: 03/21/20 03:07 Dose: 75 mls/hr Documented by: Ceftriaxone Sodium 1 gm/ (Sodium Chloride) 50 mls @ 100 mls/hr IV Q24H [facility] Last Infusion: 03/20/20 17:08 Dose: Infused Documented by: Ondansetron HCl (Zofran Odt) 4 mg PO Q4H PRN PRN Reason: nausea, able to take PO Ondansetron HCl (Zofran) 4 mg IVPUSH Q4H PRN PRN Reason: Nausea/Vomiting Oxycodone HCl (Oxycodone) 5 mg PO Q4H PRN PRN Reason: Pain (moderate 4-6) Last Admin: 03/21/20 03:09 Dose: 5 mg Documented by: Discontinued Medications Sodium Chloride (Normal Saline) 1,000 mls @ 999 mls/hr IV .BOLUS ONE Stop: 03/20/20 10:36 Last Admin: 03/20/20 09:51 Dose: 999 mls/hr Documented by: Ondansetron HCl (Zofran) 4 mg IVPUSH ONETIME ONE Stop: 03/20/20 09:34 Last Admin: 03/20/20 09:51 Dose: 4 mg Documented by: Sodium Chloride (Saline Flush) 10 ml FLUSH ASDIRECTED PRN PRN Reason: Keep Vein Open Last Admin: 03/20/20 09:53 Dose: 10 ml Documented by: - Exam General: Alert, Oriented HEENT: Pupils Equal, Pupils Reactive, EOMI, Mucous Membr. Moist/[place] Neck: Supple Lungs: Clear to Auscultation, Normal Respiratory Effort Cardiovascular: Regular Rate, Regular Rhythm GI/Abdominal Exam: Normal Bowel Sounds, Soft, Non-Tender, No Organomegaly, No Distention, No Abnormal Bruit, No Mass, Pelvis Stable Back Exam: Normal Inspection, Full Range of Motion Extremities: Normal Inspection, Normal Range of Motion, Non-Tender, No Pedal Edema, Normal Capillary Refill Skin: Rash (Erythematous macular rash) Neurological: No New Focal Deficit Psy/Mental Status: Alert, Normal Affect, Normal Mood Sepsis Event Note - Evaluation Sepsis Screening Result: No Definite Risk - Focused Exam Vital Signs: Vital Signs Temp Pulse Resp BP BP Pulse Ox 03/21/20 08:29 98.2 F 86 18 99/61 97 03/21/20 04:00 98.6 F 60 18 130/58 L 99 - Problem List Review Problem List Initiated/Reviewed/Updated: Yes - My Orders Last 24 Hours: My Active Orders 03/20/20 11:15 Sodium Chloride 0.9% [Normal Saline] 1,000 ml IV ASDIRECTED 03/20/20 11:45 CULTURE URINE [RM] Routine 03/20/20 Lunch Regular Diet [DIET] 03/20/20 12:34 diphenhydrAMINE [Benadryl] 25 mg PO QID PRN 03/20/20 13:35 MISC TEST Routine 03/20/20 14:00 Heparin Sodium 5,000 units SUBCUT Q8HR cefTRIAXone [Rocephin] 1 gm Sodium Chloride 0.9% [Normal Saline] 50 ml IV Q24H 03/20/20 15:24 Nurse Communication: Isolation [RC] ASDIRECTED Isolation [COMM] Routine 03/21/20 09:30 OCCULT BLOOD SCREEN [OP] Routine - Plan Plan:: SANTA Dehydration Creatinine elevated to 1.2 from baseline of 0.8. Likely due to emesis. Discontinue IV fluids Resolved Strict I's and O's Erythematous papular rash Differentials include dermatitis versus shingles. Dermatome does not conform to shingles less probably disseminated. shingles PCR pending Benadryl as needed for itching UTI Continue ceftriaxone Urine culture growing gram-negative rods Hypertension Hold antihypertensives for now
[2020-03-21] MEDS: cefTRIAXone 1 GM in Sodium Chloride 0.9% 50 ML IV SCH (14:23)
[2020-03-21] MEDS: Hydrocortisone 1% Crm 30 GM Tube TOP SCH (21:29)
[2020-03-22] MEDS: Heparin Sodium 5,000 Units/ML Vial SUBCUT SCH ×2 (05:53→13:54)
[2020-03-22 07:12] LABS: ANION GAP 9.5 mEq/L (7-13); CHLORIDE,CL 104 mmol/L (98-107); SODIUM,NA 139 mmol/L (136-145)
[2020-03-22] MEDS: oxyCODONE 5 MG Tab PO PRN ×2 (09:20→18:10)
[2020-03-22] MEDS: diphenhydrAMINE 25 MG Tab PO PRN ×2 (09:20→18:10)
[2020-03-22] MEDS: Hydrocortisone 1% Crm 30 GM Tube TOP SCH ×2 (09:21→18:10)
[2020-03-22] MEDS ORDERED: Magnesium Hydroxide 400 MG/5 ML Susp 30 ML Cup PO ONE (10:08)
[2020-03-22] MEDS: cefTRIAXone 1 GM in Sodium Chloride 0.9% 50 ML IV SCH (13:50)
[2020-03-22] MEDS ORDERED: Pantoprazole 40 MG Vial IVPUSH ONE (16:39)
[2020-03-22 17:02] VITALS: BP 140/69; PULSE 62
--- NOTE | 2020-03-23 09:43 | PCM.DCSUM1 ---
Discharge Summary - Hospital Course Free Text/Narrative:: Patient is an 84-year-old female with a medical history of hypertension who presented to the ED with complaints of nausea, vomiting and a diffuse erythematous papular, scaly rash started 3 weeks ago.. Initial labs showed creatinine of 1.2, hemoglobin of 11.3, urinalysis with positive leukocyte esterase. Covid 19 test was negative. Patient was treated for SANTA with dehydration with IVF resulted in resolution of SANTA. Shingles PCR was obtained for her rash and was negative she was started on hydrocortisone cream twice daily. She received ceftriaxone for UTI. Her hemoglobin was noticed to drop from 11.3-9.5. Patient reported a history of 2 episodes of large melanotic stools about a week prior to admission. She was transferred to [facility] in [place], [place] for further management and evaluation by gastroenterology for acute GI bleed. Diagnosis: Stroke: No - Discharge Data Discharge Date: 03/22/20 Discharge Disposition: DC/Tfer to Acute Hospital 02 Condition: Stable - Referral to Home Health Primary Care Physician: Mesha Cooper MD - Discharge Plan *PRESCRIPTION DRUG MONITORING PROGRAM REVIEWED*: Not Applicable *COPY OF PRESCRIPTION DRUG MONITORING REPORT IN PATIENT VIKTORIYA: Not Applicable Home Medications: Home Meds Lisinopril/Hydrochlorothiazide [Lisinopril-Hctz 10-12.5 mg Tab] 1 each PO DAILY 04/11/19 [History] metOLazone [Metolazone] 5 mg PO DAILY 02/14/20 [History] Acetaminophen [Tylenol] 650 mg PO Q4H PRN 03/20/20 [History] Naproxen Sodium [Aleve] 440 mg PO BID PRN 03/20/20 [History] Zolpidem [Ambien] 5 mg PO BEDTIME PRN 03/20/20 [History] Forms: ED Department Discharge Referrals: Mesha Cooper MD [Primary Care Provider] - - Discharge Summary/Plan Comment DC Time >30 min.: Yes - General Info Date of Service: 03/22/20 Admission Dx/Problem (Free Text: Admission Diagnosis/Problem Admission Diagnosis/Problem Dehydration Subjective Update: Patient seen and examined today. Afebrile. No acute events overnight. Rash is stable. Itching controlled by Benadryl. Patient reports renal stools last week. Functional Status: Reports: Pain Controlled - Review of Systems General: Reports: No Symptoms HEENT: Reports: No Symptoms Pulmonary: Reports: No Symptoms Cardiovascular: Reports: No Symptoms Gastrointestinal: Reports: No Symptoms Genitourinary: Reports: No Symptoms Musculoskeletal: Reports: No Symptoms Skin: Reports: Rash Neurological: Reports: No Symptoms Psychiatric: Reports: No Symptoms - Patient Data Vitals - Most Recent: Last Vital Signs Temp 97.2 F 03/22/20 17:01 Pulse 62 03/22/20 17:01 Resp 18 03/22/20 17:01 BP 140/69 03/22/20 17:01 Pulse Ox 100 03/22/20 17:01 Weight - Most Recent: 114 lb 12.8 oz I&O - Last 24 hours: Intake & Output 03/22/20 03/23/20 03/23/20 22:59 06:59 14:59 Output Total 1200 Balance -1200 CARMENCITA Results - Last 24 hrs: Microbiology 03/20/20 08:57 Aerobic Blood Culture - Preliminary Blood - Arm, Right NO GROWTH AFTER 3 DAYS Anaerobic Blood Culture - Preliminary NO GROWTH AFTER 3 DAYS 03/20/20 08:52 Aerobic Blood Culture - Preliminary Blood - Arm, Left NO GROWTH AFTER 3 DAYS Anaerobic Blood Culture - Preliminary NO GROWTH AFTER 3 DAYS 03/20/20 11:45 Urine Culture - Final Urine, Clean Catch Escherichia Coli Med Orders - Current: Current Medications Discontinued Medications Acetaminophen (Tylenol) 650 mg PO Q4H PRN PRN Reason: Pain (Mild 1-3)/fever Last Admin: 03/20/20 21:05 Dose: 650 mg Documented by: Diphenhydramine HCl (Benadryl) 25 mg PO QID PRN PRN Reason: Itching Last Admin: 03/22/20 18:10 Dose: 25 mg Documented by: Docusate Sodium (Colace) 100 mg PO BID PRN PRN Reason: Constipation Heparin Sodium (Porcine) (Heparin Sodium) 5,000 units SUBCUT Q8HR [facility] Last Admin: 03/22/20 13:54 Dose: 5,000 units Documented by: Hydrocortisone (Hydrocortisone 1% Crm) 0 gm TOP BID [facility] Last Admin: 03/22/20 18:10 Dose: 1 dose Documented by: Sodium Chloride (Normal Saline) 1,000 mls @ 999 mls/hr IV .BOLUS ONE Stop: 03/20/20 10:36 Last Admin: 03/20/20 09:51 Dose: 999 mls/hr Documented by: Sodium Chloride (Normal Saline) 1,000 mls @ 75 mls/hr IV ASDIRECTED [facility] Last Infusion: 03/21/20 18:48 Dose: Infused Documented by: Ceftriaxone Sodium 1 gm/ (Sodium Chloride) 50 mls @ 100 mls/hr IV Q24H [facility] Last Infusion: 03/22/20 14:36 Dose: Infused Documented by: Magnesium Hydroxide (Milk Of Magnesia) 30 ml PO ONETIME ONE Stop: 03/22/20 10:09 Last Admin: 03/22/20 10:21 Dose: 30 ml Documented by: Ondansetron HCl (Zofran) 4 mg IVPUSH ONETIME ONE Stop: 03/20/20 09:34 Last Admin: 03/20/20 09:51 Dose: 4 mg Documented by: Ondansetron HCl (Zofran Odt) 4 mg PO Q4H PRN PRN Reason: nausea, able to take PO Ondansetron HCl (Zofran) 4 mg IVPUSH Q4H PRN PRN Reason: Nausea/Vomiting Oxycodone HCl (Oxycodone) 5 mg PO Q4H PRN PRN Reason: Pain (moderate 4-6) Last Admin: 03/22/20 18:10 Dose: 5 mg Documented by: Pantoprazole Sodium (Protonix Iv) 40 mg IVPUSH ONETIME ONE Stop: 03/22/20 16:40 Last Admin: 03/22/20 17:03 Dose: 40 mg Documented by: Sodium Chloride (Saline Flush) 10 ml FLUSH ASDIRECTED PRN PRN Reason: Keep Vein Open Last Admin: 03/20/20 09:53 Dose: 10 ml Documented by: - Exam General: Reports: Alert, Oriented HEENT: Reports: Pupils Equal, Pupils Reactive, EOMI, Mucous Membr. Moist/[place] Neck: Reports: Supple Lungs: Reports: Clear to Auscultation, Normal Respiratory Effort Cardiovascular: Reports: Regular Rate, Regular Rhythm GI/Abdominal Exam: Normal Bowel Sounds, Soft, Non-Tender, No Organomegaly, No Distention, No Abnormal Bruit, No Mass, Pelvis Stable Back Exam: Reports: Normal Inspection, Full Range of Motion Extremities: Normal Inspection, Normal Range of Motion, Non-Tender, No Pedal Edema, Normal Capillary Refill Skin: Reports: Other (Generalized discrete erythematous papular rash) Neurological: Reports: No New Focal Deficit Psy/Mental Status: Reports: Alert, Normal Affect, Normal Mood
== END 2020-03-22 18:30 ==
LOC: DL.ED 08:13 → EDSTATUS 08:37 → DL.LAB 08:39 → EDSTATUS 08:42 → DL.MS 10:28 → DL.ED 10:38
PROVIDERS: ADMIT Internal Medicine; ATTEND Internal Medicine
DX: E86.0 Dehydration (principal); N17.9 Acute kidney failure, unspecified; R23.8 Other skin changes; N39.0 Urinary tract infection, site not specified; I10 Essential (primary) hypertension; F17.210 Nicotine dependence, cigarettes, uncomplicated; Z20.828 Contact with and (suspected) exposure to other viral communicable diseases; Z79.899 Other long term (current) drug therapy; Z98.890 Other specified postprocedural states; Z88.2 Allergy status to sulfonamides
CPT/HCPCS: 36415; 80048; 80053; 81001; 83605; 83735; 84100; 85025; 85027; 87040; 87086; 87088; 87186; 87798; 87804; 96374; 99284-25; A9270-GY; C9113; J0696; J1644; J2405; J7030; J7050; U0002

== ENCOUNTER 2020-04-11 06:32 | Day surgery (SDC) | payer MEDICARE, BC ==
[2020-04-11] MEDS ORDERED: Cataract Ophth Solution EYERT ONE (07:00)
[2020-04-11] MEDS ORDERED: Sodium Chloride 0.9% 10 ML Syringe FLUSH PRN (07:00)
[2020-04-11] MEDS ORDERED: Tropicamide 1% Ophth Soln 15 ML Bottle EYERT ONE (07:00)
[2020-04-11] MEDS ORDERED: Proparacaine 0.5% Ophth Soln 15 ML Bottle EYERT ONE (07:00)
[2020-04-11] MEDS ORDERED: Timolol Maleate 0.5% Ophth Soln 5 ML Bottle EYERT ONE (07:00)
[2020-04-11] MEDS ORDERED: Moxifloxacin 0.5% Ophth Soln 3 ML Bottle EYERT ONE (07:00)
[2020-04-11] MEDS ORDERED: Acetaminophen 325 MG Tab PO PRN (07:00)
[2020-04-11] MEDS ORDERED: Povidone-Iodine 5% Sterile Ophth Soln 30 ML Bottle EYERT ONE ×2 (07:00→09:28)
[2020-04-11] MEDS ORDERED: Ondansetron 4 MG/2 ML SDV IVPUSH PRN (07:00)
[2020-04-11] MEDS: Phenylephrine 10% Ophth Soln 5 ML Bot EYERT PRN ×2 (07:39→08:46)
[2020-04-11] MEDS ORDERED: Tetracaine HCl/PF 0.5% 4 ML Bottle EYERT ONE (09:28)
[2020-04-11] MEDS ORDERED: Dexamethasone/Tobramycin 0.1-0.3% Ophth Oint 3.5 GM Tube EYERT ONE (09:28)
[2020-04-11] MEDS ORDERED: Diclofenac Sodium 0.1% Ophth Soln 5 ML Bottle EYERT ONE (09:28)
[2020-04-11] MEDS ORDERED: Apraclonidine 0.5% Ophth Soln 5 ML Bot EYERT ONE (09:28)
[2020-04-11] MEDS ORDERED: Lidocaine 1% 30 ML SDV ONE (09:28)
[2020-04-11] MEDS ORDERED: Balanced Salt Solution Ophth Irrig 500 ML Bottle IOCULAR ONE (09:29)
[2020-04-11] MEDS ORDERED: Vancomycin 500 MG SDV EYERT ONE (09:29)
[2020-04-11] MEDS ORDERED: Chondroitin Sulfate/Hyaluronate Sodium Ophth Inj 0.75 ML Syringe EYERT ONE (09:29)
[2020-04-11 12:32] VITALS: BP 115/55; PULSE 72
--- NOTE | 2020-04-12 07:48 | OR ---
DATE: 04/11/2020 PREOPERATIVE DIAGNOSIS: Visually significant mixed cataract, right eye. POSTOPERATIVE DIAGNOSIS: Visually significant mixed cataract, right eye. PROCEDURE: Extracapsular cataract extraction with intraocular lens implant, right eye. ANESTHESIA: Topical/local MAC. COMPLICATIONS: None. INDICATION: Ms. Gonzales was seen in the clinic. She has complained of a slow progressive decrease in vision. The examination revealed visually significant mixed cataract. I explained options, offered cataract surgery and I explained risks including, but not limited to, infection, retinal detachment, loss of vision, need for additional surgery, and risks associated with anesthesia. We discussed implant options. She has requested a monofocal implant. OPERATIVE DESCRIPTION: After informed consent was obtained and the risks, benefits, and alternatives were explained, the patient was brought to the operative suite and topical anesthesia was administered. The patient was then prepped and draped in the sterile fashion and attention was placed on the right eye. A sterile lid speculum was placed into the right eye to allow operative exposure. A full-thickness paracentesis was made in the temporal portion of the operative eye. Preservative-free lidocaine 0.1 mL was injected into the anterior chamber followed by viscoelastic. A full-thickness corneal incision was then made into the anterior chamber. A bent needle cystotome was used to create a small edgar in the anterior capsule. The capsulorrhexis forceps was then used to create a 360-degree curvilinear capsulorrhexis. The nucleus was then removed using a phacoemulsification handpiece and the remaining cortical material was then removed with irrigation and aspiration handpiece. Following removal of the cortical material, the capsular bag was then inspected and noted to be free of any holes or tears. Viscoelastic was then injected into the capsular bag and the intraocular lens was inserted into the capsular bag. The viscoelastic material was then removed from both the anterior and posterior chambers and from behind the IOL. The lens and capsular bag were then reinspected. The IOL was well centered and the capsular bag intact. The wound and paracentesis sites were inspected and hydrated with balanced saline solution. Both were found to be self- sealing. The intraocular pressure was assessed digitally and found to be within normal range. A good red reflex was noted at the completion of the procedure. No complications occurred during the operation. At the completion of the procedure, Maxitrol, Voltaren, and Iopidine drops were placed into the operative eye. A sterile eye shield was placed over the operative eye and the patient was transported to the postoperative recovery area having tolerated the procedure well. Postoperative instructions were given along with a postoperative appointment. The patient was advised to call with any questions or concerns. [facility] /[id number]
== END 2020-04-11 10:38 | disposition home or self-care (01) ==
LOC: DL.SDS 06:32
PROVIDERS: ATTEND Ophthalmology
DX: H25.811 Combined forms of age-related cataract, right eye (principal); F51.04 Psychophysiologic insomnia; F17.210 Nicotine dependence, cigarettes, uncomplicated; K21.9 Gastro-esophageal reflux disease without esophagitis; Z79.899 Other long term (current) drug therapy; Z98.890 Other specified postprocedural states
CPT/HCPCS: 00142; A9270-GY; J2001; J3370; V2632

== ENCOUNTER 2020-06-19 07:05 | Day surgery (SDC) | payer MEDICARE, BC ==
[~2020-06-19 07:05] MED LIST changes: +Dextrose 5%-0.45% NaCl 1,000 ML IV SCH; +Midazolam 1 MG/ML 2 ML SDV ONE; +fentaNYL 100 MCG/2 ML SDV ONE
[2020-06-19] MEDS ORDERED: fentaNYL 100 MCG/2 ML SDV IV ONE ×3 (07:06→08:04)
[2020-06-19] MEDS ORDERED: Midazolam 1 MG/ML 2 ML SDV IV ONE ×2 (07:06→08:01)
--- NOTE | 2020-06-19 09:02 | OR ---
DATE: 06/19/2020 PROCEDURES: Esophagogastroduodenoscopy, NBI, multiple pinch biopsies and brush biopsy. INSTRUMENT USED: GIF-HQ190 Olympus video panendoscope. PREMEDICATIONS: No oral or topical anesthesia used. Fentanyl 75 mcg intravenous, Versed 1 mg intravenous. Nasal O2 cannula. The procedure was done under pulse oximetry, BP recording, and mine technician. INDICATION: The patient with recent gastrointestinal bleeding, undetected gastric ulcer, treated with PPI. Followup esophagogastroduodenoscopy is performed for verification of total healing of gastric ulcer and rule out malignancy, endoscopic hemostasis therapy if needed. PROCEDURE IN DETAIL: The scope was passed with ease. Adequate visualization of the esophagus was made from proximal to distal areas. No upper esophageal lesions identified. No distal esophageal stricture. No uphill or downhill esophageal varices. No Rachel-Yarbrough tear. No evidence of erosive esophagitis by [place] criteria. No esophageal polyp or tumor mass identified. Z-line was seen at around 40 cm distal to the oral verge, configuration consistent with grade 1 by ZAP classification. No proximal gastric varices noted. Gastric fundus examination by retroflexion showed no polypoid lesions. No vascular ectasia identified. Prominent fold was noted in the gastric antrum along with more than 1 cm sized ulcer, no visible vessel identified, no bleeding noted from the ulcer. Duodenal bulb showed no ulcer. Visualized second part of duodenum was unremarkable. Photographs were taken of the duodenal bulb, gastric antrum, fundus, and distal esophagus. NBI views were obtained of the gastric ulcer. Numerous pinch biopsies, 6 in number, were taken from different areas of the ulcer. [place] biopsy was taken for cytology. No bleeding was noted from any of the visualized areas at the completion of examination. IMPRESSION: Gastric antral ulcer. The patient tolerated the procedure well. [facility] /[id number]
--- NOTE | 2020-06-19 09:23 | LETTER ---
06/19/2020 RE: HUNTERANU : 1935 Mesha Cooper MD [address] [place] [address] Cooper: Ms. Anu Gonzales had esophagogastroduodenoscopy done this morning, and she tolerated the procedure well. I herewith send a copy of the endoscopy note and photographs for your review. Thank you. Sincerely, [facility] /[id number]
[2020-06-19 10:49] VITALS: BP 155/69; PULSE 60
== END 2020-06-19 10:30 | disposition home or self-care (01) ==
LOC: DL.ENDO 07:05
PROVIDERS: ATTEND Internal Medicine Gastroenterology
DX: K25.9 Gastric ulcer, unspecified as acute or chronic, without hemorrhage or perforation (principal); D50.9 Iron deficiency anemia, unspecified; I10 Essential (primary) hypertension; K31.89 Other diseases of stomach and duodenum; F17.200 Nicotine dependence, unspecified, uncomplicated; G47.00 Insomnia, unspecified; K26.9 Duodenal ulcer, unspecified as acute or chronic, without hemorrhage or perforation; Z88.2 Allergy status to sulfonamides; Z88.8 Allergy status to other drugs, medicaments and biological substances; Z90.49 Acquired absence of other specified parts of digestive tract; Z98.890 Other specified postprocedural states
CPT/HCPCS: 87077; 88104; 88305; J2250; J3010; J7042

== ENCOUNTER 2020-08-29 05:49 | Day surgery (SDC) | payer MEDICARE, BC ==
[2020-08-29] MEDS ORDERED: Midazolam 1 MG/ML 2 ML SDV IV ONE ×2 (05:50→07:38)
[2020-08-29] MEDS ORDERED: fentaNYL 100 MCG/2 ML SDV IV ONE ×2 (05:50→07:37)
[2020-08-29] MEDS ORDERED: Dextrose 5%-0.45% NaCl 1,000 ML IV SCH (06:00)
[2020-08-29] MEDS ORDERED: Sodium Chloride 0.9% 10 ML Syringe FLUSH PRN (06:00)
[2020-08-29] MEDS ORDERED: Midazolam 1 MG/ML 2 ML SDV ONE (06:18)
[2020-08-29] MEDS ORDERED: fentaNYL 100 MCG/2 ML SDV ONE (06:18)
[2020-08-29 10:37] VITALS: PULSE 57
[2020-08-29 10:38] VITALS: BP 99/47
--- NOTE | 2020-08-29 16:35 | OR ---
DATE: 08/29/2020 PROCEDURE: Esophagogastroduodenoscopy and multiple pinch biopsies. INSTRUMENT USED: GIF-HQ190 Olympus video panendoscope. PREMEDICATIONS: No oral or topical anesthesia used. Fentanyl 50 mcg intravenous. Versed 1 mg intravenous. The procedure was done under pulse oximetry, BP recording, and school lunch monitor. INDICATION: The patient with previous gastric ulcer, on high-dose PPI. Esophagogastroduodenoscopy is performed for verification of total healing of gastric ulcer and rule out malignancy. Endoscopic hemostasis therapy if needed. DESCRIPTION OF PROCEDURE: The scope was passed with ease. Adequate visualization of the esophagus was made from proximal to distal areas. No upper esophageal lesions identified. No distal esophageal stricture. No uphill or downhill esophageal varices. No Rachel-Yarbrough tear. No evidence of erosive esophagitis by [place] criteria. No esophageal polyp or tumor mass identified. Z-line was seen at around 40 cm distal to the oral verge. No proximal gastric varices noted. Gastric fundus examination by retroflexion showed no polypoid lesions. No gastric ulcer, malignant mass, or vascular ectasia identified. Duodenal bulb showed no ulcer. Visualized second part of duodenum is unremarkable. Previously known gastric ulcer's scar tissue was noted in the antrum, multiple pinch biopsies were taken and sent for histopathology. No bleeding was noted from any of the visualized areas at the completion of examination. Photographs were taken of the duodenal bulb, gastric antrum, fundus, and distal esophagus. IMPRESSION: Status post gastric antral ulcer. The patient tolerated the procedure well. [facility] /[id number] [facility] SYSTEMEmilee
--- NOTE | 2020-08-30 08:29 | LETTER ---
08/29/2020 RE: HUNTERANU : 1935 [place] [address] Cooper: Ms. Anu Gonzales had esophagogastroduodenoscopy done this morning, and she tolerated the procedure well. I, herewith, send a copy of the endoscopy note and photographs for your review. Thank you. [facility] /[id number]
== END 2020-08-29 10:00 | disposition home or self-care (01) ==
LOC: DL.ENDO 05:49
PROVIDERS: ATTEND Internal Medicine Gastroenterology
DX: K22.8 Other specified diseases of esophagus (principal); D50.9 Iron deficiency anemia, unspecified; F41.1 Generalized anxiety disorder; Z88.2 Allergy status to sulfonamides; Z88.8 Allergy status to other drugs, medicaments and biological substances; Z87.19 Personal history of other diseases of the digestive system; Z72.0 Tobacco use
CPT/HCPCS: 43239; J2250; J3010; J7042; 88305

== ENCOUNTER 2022-02-20 11:08 | Emergency (ER) | payer MEDICARE, BC ==
[2022-02-20 11:14] VITALS: BP 166/108; PULSE 75
[2022-02-20 12:07] LABS: ANION GAP 15.5 mEq/L (7-13)
== END 2022-02-20 12:40 | disposition home or self-care (01) ==
LOC: DL.ED 11:08
DX: S00.03XA Contusion of scalp, initial encounter (principal); N39.0 Urinary tract infection, site not specified; F17.210 Nicotine dependence, cigarettes, uncomplicated; E66.9 Obesity, unspecified; Z79.899 Other long term (current) drug therapy; Z88.2 Allergy status to sulfonamides; Z88.8 Allergy status to other drugs, medicaments and biological substances; W19.XXXA Unspecified fall, initial encounter
CPT/HCPCS: 36415; 70450; 72125; 80053; 81001; 85025; 87086; 87088; 87186; 99284

== ENCOUNTER 2022-07-11 09:16 | Inpatient (IN) | payer MEDICARE, BC ==
[2022-07-11 10:17] LABS: CORONAVIRUS COVID-19 NAA NEGATIVE (NEGATIVE); RESPIRATORY SYNCYTIAL VIR NAA NEGATIVE (NEGATIVE)
[2022-07-11 10:32] LABS: ANION GAP 12.9 mEq/L (7-13); CHLORIDE,CL 101 mmol/L (98-107); SODIUM,NA 136 mmol/L (136-145)
[2022-07-11 10:35] LABS: ESTIMATED GFR 61 mL/min (>=60)
[2022-07-11] MEDS ORDERED: Furosemide 20 MG/2 ML VIAL IVPUSH ONE (10:49)
[2022-07-11] MEDS ORDERED: Ondansetron 4 MG/2 ML SDV IVPUSH ONE (11:23)
[2022-07-11] MEDS ORDERED: Heparin Sodium 5,000 Units/ML Vial IVPUSH ONE ×2 (14:10→22:27)
[2022-07-11] MEDS: Heparin Sodium/0.45% NaCl 25,000 UNITS/500 ML BAG IV SCH (14:24)
[2022-07-11] MEDS ORDERED: Metoprolol Tartrate 5 MG/5 ML SDV IVPUSH PRN (14:53)
[2022-07-11] MEDS ORDERED: hydrALAZINE 20 MG/ML SDV IVPUSH PRN (14:53)
[2022-07-11] MEDS ORDERED: Bisacodyl 5 MG Tab PO PRN (14:57)
[2022-07-11] MEDS ORDERED: Magnesium Hydroxide 400 MG/5 ML Susp 30 ML Cup PO PRN (14:57)
[2022-07-11] MEDS ORDERED: Albuterol/Ipratropium 3.0-0.5 MG/3 ML Neb Soln NEB PRN (14:57)
[2022-07-11] MEDS ORDERED: Polyethylene Glycol 3350 Powder 17 GM Packet PO PRN (14:57)
[2022-07-11] MEDS ORDERED: HYDROmorphone 0.5 MG/0.5 ML Syringe IVPUSH PRN (14:57)
[2022-07-11] MEDS ORDERED: Acetaminophen 325 MG Tab PO PRN (14:57)
[2022-07-11] MEDS ORDERED: Ondansetron 4 MG/2 ML SDV IVPUSH PRN (14:57)
[2022-07-11] MEDS ORDERED: Aspirin 325 MG Tab PO STA (15:00)
[2022-07-11 15:48] LABS: HEMOGLOBIN A1C 5.5 % (<5.7)
[2022-07-11] MEDS: Carvedilol 3.125 MG Tab PO SCH (18:12)
[2022-07-11] MEDS ORDERED: traMADol 50 MG Tab PO PRN (19:16)
[2022-07-11] MEDS ORDERED: guaiFENesin/Dextromethorphan 100-10 MG/5 ML Soln 5 ML Cup PO PRN (19:55)
[2022-07-11] MEDS: Acetaminophen 325 MG Tab PO PRN (21:48)
[2022-07-11] MEDS: Folic Acid 1 MG Tab PO SCH (21:48)
[2022-07-11] MEDS: Melatonin 3 MG Tab PO PRN (21:49)
[2022-07-11] MEDS: Sodium Chloride 0.9% 10 ML Syringe FLUSH SCH (21:49)
[2022-07-11] MEDS: Sodium Chloride 0.9% 10 ML Syringe FLUSH PRN (22:54)
[2022-07-12] MEDS ORDERED: Heparin Sodium 5,000 Units/ML Vial IVPUSH ONE (03:43)
[2022-07-12] MEDS: Sodium Chloride 0.9% 10 ML Syringe FLUSH PRN (04:05)
[2022-07-12] MEDS: Aspirin 81 MG Tab.Chew PO SCH (08:10)
[2022-07-12] MEDS: Carvedilol 3.125 MG Tab PO SCH ×2 (08:10→18:26)
[2022-07-12] MEDS: Hydrochlorothiazide 25 MG Tab PO SCH (08:11)
[2022-07-12] MEDS: Losartan 25 MG Tab PO SCH (08:11)
[2022-07-12] MEDS: Famotidine 20 MG Tab PO SCH (08:12)
[2022-07-12] MEDS: Sodium Chloride 0.9% 10 ML Syringe FLUSH SCH ×2 (08:14→20:54)
[2022-07-12 09:20] LABS: ANION GAP 10.5 mEq/L (7-13)
[2022-07-12] MEDS: Acetaminophen 325 MG Tab PO PRN ×2 (09:34→20:53)
[2022-07-12] MEDS: Heparin Sodium/0.45% NaCl 25,000 UNITS/500 ML BAG IV SCH (20:39)
[2022-07-12] MEDS: Melatonin 3 MG Tab PO PRN (20:53)
[2022-07-12] MEDS: Folic Acid 1 MG Tab PO SCH (20:53)
[2022-07-12] MEDS: Simvastatin 10 MG Tab PO SCH (20:53)
[2022-07-13] MEDS: Acetaminophen 325 MG Tab PO PRN ×2 (02:18→20:07)
[2022-07-13 06:47] LABS: ANION GAP 10.1 mEq/L (7-13)
[2022-07-13] MEDS: Aspirin 81 MG Tab.Chew PO SCH (08:08)
[2022-07-13] MEDS: Hydrochlorothiazide 25 MG Tab PO SCH (08:09)
[2022-07-13] MEDS: Famotidine 20 MG Tab PO SCH (08:09)
[2022-07-13] MEDS: Losartan 25 MG Tab PO SCH (08:10)
[2022-07-13] MEDS: Carvedilol 3.125 MG Tab PO SCH ×2 (08:10→17:29)
[2022-07-13] MEDS: Sodium Chloride 0.9% 10 ML Syringe FLUSH SCH ×2 (08:10→20:09)
[2022-07-13] MEDS ORDERED: Dexamethasone 4 MG/ML SDV IVPUSH ONE (08:17)
[2022-07-13] MEDS: Melatonin 3 MG Tab PO PRN (20:06)
[2022-07-13] MEDS: Folic Acid 1 MG Tab PO SCH (20:07)
[2022-07-13] MEDS: Simvastatin 10 MG Tab PO SCH (20:08)
[2022-07-14] MEDS: Acetaminophen 325 MG Tab PO PRN (00:22)
[2022-07-14 06:39] LABS: ANION GAP 12.3 mEq/L (7-13)
[2022-07-14] MEDS: Losartan 25 MG Tab PO SCH (08:46)
[2022-07-14] MEDS: Carvedilol 3.125 MG Tab PO SCH (08:46)
[2022-07-14] MEDS: Famotidine 20 MG Tab PO SCH (08:47)
[2022-07-14] MEDS: Hydrochlorothiazide 25 MG Tab PO SCH (08:47)
[2022-07-14] MEDS: Aspirin 81 MG Tab.Chew PO SCH (08:47)
[2022-07-14 08:49] VITALS: BP 135/76; PULSE 77
[2022-07-14] MEDS: Sodium Chloride 0.9% 10 ML Syringe FLUSH SCH (08:49)
== END 2022-07-14 11:46 | disposition home or self-care (01) | DRG 281 ==
LOC: DL.ED 09:16 → DL.MS 14:12
PROVIDERS: ADMIT Internal Medicine; ATTEND Internal Medicine
DX: I21.4 Non-ST elevation (NSTEMI) myocardial infarction (principal); I16.9 Hypertensive crisis, unspecified; D53.9 Nutritional anemia, unspecified; Z20.822 Contact with and (suspected) exposure to COVID-19; I10 Essential (primary) hypertension; J98.11 Atelectasis; I11.0 Hypertensive heart disease with heart failure; E53.8 Deficiency of other specified B group vitamins; D50.9 Iron deficiency anemia, unspecified; Z66 Do not resuscitate; H54.7 Unspecified visual loss; H91.90 Unspecified hearing loss, unspecified ear; I50.9 Heart failure, unspecified; F41.9 Anxiety disorder, unspecified; E66.9 Obesity, unspecified; R32 Unspecified urinary incontinence; Z96.659 Presence of unspecified artificial knee joint; Z96.619 Presence of unspecified artificial shoulder joint; M19.90 Unspecified osteoarthritis, unspecified site; R73.9 Hyperglycemia, unspecified; F43.21 Adjustment disorder with depressed mood; Z88.2 Allergy status to sulfonamides; Z88.8 Allergy status to other drugs, medicaments and biological substances; Z86.718 Personal history of other venous thrombosis and embolism; Z79.01 Long term (current) use of anticoagulants; Z90.710 Acquired absence of both cervix and uterus; Z98.49 Cataract extraction status, unspecified eye; Z90.49 Acquired absence of other specified parts of digestive tract
CPT/HCPCS: 0241U; 36415; 71045; 80053; 80061; 81001; 82306; 82607; 82746; 83036; 83605; 83735; 83880; 84439; 84443; 84484; 85025; 85730; 86140; 87086; 93005; 96374; 96375; 99233; 99238; 99285; 93010; A9270-GY; J1644; J1940; J2405; J3490

== ENCOUNTER 2023-03-15 12:54 | Emergency (ER) | payer MEDICARE, BC ==
[2023-03-15] MEDS ORDERED: Sodium Chloride 0.9% 10 ML Syringe FLUSH PRN (12:58)
[2023-03-15 13:09] VITALS: BP 167/74; PULSE 70
[2023-03-15 13:18] LABS: BASOPHILS PERCENT AUTO 0.9 % (0.0-1.0); EOSINOPHILS PERCENT AUTO 1.1 % (1.0-3.0); HEMATOCRIT 30.5 % (37.0-47.0); LYMPHOCYTES PERCENT AUTO 19.3 % (20.5-50.1); MEAN CORPUSCULAR HEMOGLOBIN 33.1 pg (27.0-34.0); MEAN CORPUSCULAR HGB CONC 32.8 g/dL (33.0-35.0); MONOCYTES PERCENT AUTO 12.5 % (2-8); NEUTROPHILS PERCENT AUTO 66.2 % (42.2-75.2); PLATELET COUNT,PLT 266 10^3/uL (150-450); RED BLOOD CELL COUNT 3.02 10^6/uL (4.2-5.4); WHITE BLOOD CELL COUNT,WBC 5.3 10^3/uL (5.0-10.0)
[2023-03-15 13:42] LABS: CORONAVIRUS COVID-19 NAA NEGATIVE (NEGATIVE); INFLUENZA A NAA NEGATIVE (NEGATIVE); INFLUENZA B NAA NEGATIVE (NEGATIVE)
[2023-03-15 13:45] LABS: A/G RATIO 1.2; ALBUMIN 3.7 g/dL (3.4-5.0); BILIRUBIN TOTAL 0.3 mg/dL (0.2-1.0); BUN/CREATININE RATIO 25.4 (No establ ref range); CALCIUM 8.9 mg/dL (8.5-10.1); CREATININE 1.3 mg/dL (0.55-1.02); EST CRCL DRUG DOSING (CG) 24.11 mL/min; PROTEIN TOTAL,TP 6.9 g/dL (6.4-8.2)
[2023-03-15] MEDS ORDERED: Iopamidol 755 Mg/ML 100 ML Bottle IVPUSH ONE (13:58)
[2023-03-15] MEDS ORDERED: Sodium Chloride 0.9% 500 ML IV SCH (14:00)
[2023-03-15 16:47] LABS: APPEARANCE,URINE SLIGHTLY CLOUDY (CLEAR); BILIRUBIN,URINE NEGATIVE (NEGATIVE); COLOR,URINE YELLOW (YELLOW); GLUCOSE,URINE NEGATIVE (NEGATIVE); KETONES,URINE NEGATIVE (NEGATIVE); LEUKOCYTE ESTERASE,URINE TRACE (NEGATIVE); NITRITE,URINE POSITIVE (NEGATIVE); OCCULT BLOOD,URINE NEGATIVE (NEGATIVE); PH,URINE 5.5 (5.0-9.0); PROTEIN,URINE NEGATIVE (NEGATIVE); UROBILINOGEN,URINE 0.2 mg/dL (0.2-1.0)
[2023-03-15] MEDS ORDERED: cefTRIAXone 1 GM Vial IVPUSH ONE (16:51)
[2023-03-15 16:53] LABS: A/G RATIO 1.1; ALBUMIN 3.7 g/dL (3.4-5.0); ANION GAP 14.3 mEq/L (7-13); BILIRUBIN TOTAL 0.2 mg/dL (0.2-1.0); BUN/CREATININE RATIO 24.6 (No establ ref range); CALCIUM 8.7 mg/dL (8.5-10.1); CREATININE 1.22 mg/dL (0.55-1.02); EST CRCL DRUG DOSING (CG) 25.69 mL/min; POTASSIUM,K 4.3 mmol/L (3.5-5.1)
[2023-03-15 16:59] LABS: BACTERIA,URINE MANY /HPF (0-FEW/HPF); EPITHELIAL CELLS,URINE FEW /HPF (NOT SEEN); RBC,URINE 0-5 /HPF (0-5); WBC,URINE 20-30 /HPF (0-5/HPF)
== END 2023-03-15 17:29 ==
LOC: DL.ED 12:54
DX: J06.9 Acute upper respiratory infection, unspecified (principal); E86.0 Dehydration; N39.0 Urinary tract infection, site not specified; M79.651 Pain in right thigh; M79.652 Pain in left thigh; T46.6X5A Adverse effect of antihyperlipidemic and antiarteriosclerotic drugs, initial encounter; I10 Essential (primary) hypertension; E66.9 Obesity, unspecified; Z68.24 Body mass index [BMI] 24.0-24.9, adult; Z88.8 Allergy status to other drugs, medicaments and biological substances; Z88.2 Allergy status to sulfonamides; Z79.82 Long term (current) use of aspirin; Z79.899 Other long term (current) drug therapy; Z20.822 Contact with and (suspected) exposure to COVID-19
CPT/HCPCS: 0240U; 36415; 71045; 71275; 80053; 81001; 82550; 83880; 84484; 85025; 85379; 87086; 87088; 87186; 93005; 93010; 96361; 96374; 99284; 99285-25; J0696; J3490; J7040; Q9967

== ENCOUNTER 2023-04-05 19:03 | Emergency (ER) | payer MEDICARE, BC ==
[2023-04-05] MEDS ORDERED: Sodium Chloride 0.9% 10 ML Syringe FLUSH PRN (19:47)
[2023-04-05] MEDS ORDERED: Lidocaine 2% Viscous Solution 15 ML UD PO ONE (19:49)
[2023-04-05] MEDS ORDERED: Aluminum Hydroxide/Magnesium Hydroxide/Simethicone Susp 30 ML Cup PO ONE (19:49)
[2023-04-05] MEDS ORDERED: diphenhydrAMINE 12.5 MG/5 ML Liquid 5 ML UD Cup PO PRN (19:49)
[2023-04-05 19:55] LABS: BASOPHILS PERCENT AUTO 0.5 % (0.0-1.0); EOSINOPHILS PERCENT AUTO 0.9 % (1.0-3.0); HEMATOCRIT 31.3 % (37.0-47.0); HEMOGLOBIN 10.2 g/dL (12.0-16.0); LYMPHOCYTES PERCENT AUTO 14.6 % (20.5-50.1); MEAN CORPUSCULAR HEMOGLOBIN 32.6 pg (27.0-34.0); MEAN CORPUSCULAR HGB CONC 32.6 g/dL (33.0-35.0); MONOCYTES PERCENT AUTO 8.7 % (2-8); NEUTROPHILS PERCENT AUTO 75.3 % (42.2-75.2); PLATELET COUNT,PLT 320 10^3/uL (150-450); RED BLOOD CELL COUNT 3.13 10^6/uL (4.2-5.4); WHITE BLOOD CELL COUNT,WBC 6.6 10^3/uL (5.0-10.0)
[2023-04-05 20:06] LABS: A/G RATIO 0.92; ALANINE AMINOTRANSFERASE,ALT 14 U/L (14-59); ALBUMIN 3.3 g/dL (3.4-5.0); ALKALINE PHOSPHATASE 117 U/L (46-116); ANION GAP 13.3 mEq/L (7-13); ASPARTATE AMNIOTRANSFERASE,AST 13 U/L (15-37); BILIRUBIN TOTAL 0.6 mg/dL (0.2-1.0); BLOOD UREA NITROGEN,BUN 19 mg/dL (7-18); BUN/CREATININE RATIO 16.7 (No establ ref range); CARBON DIOXIDE,CO2 25 mmol/L (21-32); CHLORIDE,CL 96 mmol/L (98-107); CREATININE 1.14 mg/dL (0.55-1.02); ESTIMATED GFR 47 mL/min (>=60); GLUCOSE RANDOM 113 mg/dL (70-99); POTASSIUM,K 4.3 mmol/L (3.5-5.1); PROTEIN TOTAL,TP 6.9 g/dL (6.4-8.2); SODIUM,NA 130 mmol/L (136-145)
[2023-04-05] MEDS ORDERED: Clopidogrel 75 MG Tab PO ONE (20:47)
[2023-04-05] MEDS ORDERED: Heparin Sodium 5,000 Units/ML Vial IVPUSH ONE (20:48)
[2023-04-05] MEDS ORDERED: Aspirin 81 MG Tab.Chew PO ONE (20:52)
[2023-04-05] MEDS ORDERED: Heparin Sodium/0.45% NaCl 25,000 UNITS/500 ML BAG IV SCH (21:00)
[2023-04-05 21:18] LABS: APPEARANCE,URINE CLEAR (CLEAR); BILIRUBIN,URINE NEGATIVE (NEGATIVE); COLOR,URINE YELLOW (YELLOW); GLUCOSE,URINE NEGATIVE (NEGATIVE); KETONES,URINE NEGATIVE (NEGATIVE); LEUKOCYTE ESTERASE,URINE TRACE (NEGATIVE); NITRITE,URINE NEGATIVE (NEGATIVE); OCCULT BLOOD,URINE NEGATIVE (NEGATIVE); PROTEIN,URINE NEGATIVE (NEGATIVE); UROBILINOGEN,URINE 0.2 mg/dL (0.2-1.0)
[2023-04-05 21:27] LABS: BACTERIA,URINE FEW /HPF (0-FEW/HPF); EPITHELIAL CELLS,URINE FEW /HPF (NOT SEEN); RBC,URINE 0-5 /HPF (0-5); WBC,URINE 0-5 /HPF (0-5/HPF)
[2023-04-06 06:03] VITALS: BP 150/80
[2023-04-06 06:43] VITALS: PULSE 68
== END 2023-04-06 08:18 | disposition home or self-care (01) ==
LOC: DL.ED 19:03
DX: R07.89 Other chest pain (principal); I10 Essential (primary) hypertension; E66.9 Obesity, unspecified; Z79.82 Long term (current) use of aspirin; Z79.899 Other long term (current) drug therapy; Z88.2 Allergy status to sulfonamides; Z88.8 Allergy status to other drugs, medicaments and biological substances; Z68.21 Body mass index [BMI] 21.0-21.9, adult
CPT/HCPCS: 36415; 80053; 81001; 83735; 84484; 85025; 85730; 87086; 87088; 87186; 93005; 93010; 96365; 96366; 99284; 99285; A9270-GY; J1644; J3490

== ENCOUNTER 2024-02-09 06:28 | Day surgery (SDC) | payer MEDICARE, BC ==
[2024-02-09] MEDS: Dextrose 5%-0.45% NaCl 1,000 ML IV SCH (06:52)
[2024-02-09] MEDS ORDERED: Midazolam 1 MG/ML 2 ML SDV IV ONE (06:52)
[2024-02-09] MEDS ORDERED: fentaNYL 100 MCG/2 ML SDV ONE (06:52)
[2024-02-09] MEDS ORDERED: Midazolam 1 MG/ML 2 ML SDV ONE (06:52)
[2024-02-09] MEDS ORDERED: fentaNYL 100 MCG/2 ML SDV IV ONE (06:52)
[2024-02-09] MEDS: fentaNYL 100 MCG/2 ML SDV IV ONE (07:36)
[2024-02-09] MEDS: Midazolam 1 MG/ML 2 ML SDV IV ONE (07:36)
[2024-02-09 09:06] VITALS: BP 142/59; PULSE 60
== END 2024-02-09 09:45 | disposition home or self-care (01) ==
LOC: DL.ENDO 06:28
PROVIDERS: ATTEND Internal Medicine Gastroenterology
DX: K29.50 Unspecified chronic gastritis without bleeding (principal); K31.89 Other diseases of stomach and duodenum; D50.9 Iron deficiency anemia, unspecified; I10 Essential (primary) hypertension; I25.10 Atherosclerotic heart disease of native coronary artery without angina pectoris; Z95.5 Presence of coronary angioplasty implant and graft
CPT/HCPCS: 43239; 87077; 88104; 88305; 88341; 88342; J2250; J3010; J7799

== ENCOUNTER 2024-03-03 06:49 | Day surgery (SDC) | payer MEDICARE, BC ==
[~2024-03-03 06:49] MED LIST changes: -Dextrose 5%-0.45% NaCl 1,000 ML IV SCH; -Sodium Chloride 0.9% 10 ML Syringe FLUSH PRN
[2024-03-03] MEDS ORDERED: fentaNYL 100 MCG/2 ML SDV IV ONE (06:50)
[2024-03-03] MEDS ORDERED: Midazolam 1 MG/ML 2 ML SDV IV ONE (06:50)
[2024-03-03] MEDS: Dextrose 5%-0.45% NaCl 1,000 ML IV SCH (07:29)
[2024-03-03] MEDS: fentaNYL 100 MCG/2 ML SDV IV ONE ×3 (07:37→07:49)
[2024-03-03] MEDS: Midazolam 1 MG/ML 2 ML SDV IV ONE ×5 (07:39→07:57)
[2024-03-03 10:37] VITALS: BP 150/71; PULSE 79
== END 2024-03-03 10:39 | disposition home or self-care (01) ==
LOC: DL.ENDO 06:49
PROVIDERS: ATTEND Internal Medicine Gastroenterology
DX: K57.30 Diverticulosis of large intestine without perforation or abscess without bleeding (principal); I25.10 Atherosclerotic heart disease of native coronary artery without angina pectoris; I10 Essential (primary) hypertension; Z95.5 Presence of coronary angioplasty implant and graft; D50.9 Iron deficiency anemia, unspecified
CPT/HCPCS: 45378; J2250; J3010; J7799

== ENCOUNTER 2024-03-31 17:35 | Emergency (ER) | payer MEDICARE, BC ==
[2024-03-31 18:26] VITALS: PULSE 77
[2024-03-31 19:03] LABS: BASOPHILS PERCENT AUTO 0.8 % (0.0-1.0); EOSINOPHILS PERCENT AUTO 2.8 % (1.0-3.0); HEMATOCRIT 24.6 % (37.0-47.0); HEMOGLOBIN 7.7 g/dL (12.0-16.0); LYMPHOCYTES PERCENT AUTO 24.2 % (20.5-50.1); MEAN CORPUSCULAR HEMOGLOBIN 32.4 pg (27.0-34.0); MEAN CORPUSCULAR HGB CONC 31.3 g/dL (33.0-35.0); MEAN CORPUSCULAR VOLUME 103.4 fL (80-100); MONOCYTES PERCENT AUTO 10.6 % (2-8); NEUTROPHILS PERCENT AUTO 61.6 % (42.2-75.2); PLATELET COUNT,PLT 213 10^3/uL (150-450); RED BLOOD CELL COUNT 2.38 10^6/uL (4.2-5.4); WHITE BLOOD CELL COUNT,WBC 3.9 10^3/uL (5.0-10.0)
[2024-03-31 19:42] VITALS: BP 172/69
== END 2024-03-31 20:33 | disposition home or self-care (01) ==
LOC: DL.ED 17:35
DX: D64.9 Anemia, unspecified (principal); I10 Essential (primary) hypertension; E78.00 Pure hypercholesterolemia, unspecified; K21.9 Gastro-esophageal reflux disease without esophagitis; E66.9 Obesity, unspecified; Z95.5 Presence of coronary angioplasty implant and graft; Z90.49 Acquired absence of other specified parts of digestive tract; Z90.710 Acquired absence of both cervix and uterus; Z79.899 Other long term (current) drug therapy; Z79.2 Long term (current) use of antibiotics; Z88.8 Allergy status to other drugs, medicaments and biological substances; Z88.2 Allergy status to sulfonamides
CPT/HCPCS: 36415; 82272; 85025; 99284

== ENCOUNTER 2024-07-13 08:17 | Emergency (ER) | payer MEDICARE, BC ==
[2024-07-13] MEDS ORDERED: Sodium Chloride 0.9% 10 ML Syringe FLUSH PRN (08:24)
[2024-07-13 08:56] LABS: BASOPHILS PERCENT AUTO 0.2 % (0.0-1.0); EOSINOPHILS PERCENT AUTO 0.4 % (1.0-3.0); HEMATOCRIT 26.5 % (37.0-47.0); HEMOGLOBIN 8.5 g/dL (12.0-16.0); LYMPHOCYTES PERCENT AUTO 19.6 % (20.5-50.1); MEAN CORPUSCULAR HEMOGLOBIN 35.1 pg (27.0-34.0); MEAN CORPUSCULAR HGB CONC 32.1 g/dL (33.0-35.0); MEAN CORPUSCULAR VOLUME 109.5 fL (80-100); MONOCYTES PERCENT AUTO 7.1 % (2-8); NEUTROPHILS PERCENT AUTO 72.7 % (42.2-75.2); PLATELET COUNT,PLT 208 10^3/uL (150-450); RED BLOOD CELL COUNT 2.42 10^6/uL (4.2-5.4); WHITE BLOOD CELL COUNT,WBC 5.6 10^3/uL (5.0-10.0)
[2024-07-13] MEDS ORDERED: Lidocaine 1% with EPINEPHrine 1:100,000 20 ML MDV INJECT ONE (09:18)
[2024-07-13 09:25] LABS: ALBUMIN 3.2 g/dL (3.4-5.0); ALKALINE PHOSPHATASE 31 U/L (46-116); ANION GAP 12.6 mEq/L (7-13); BILIRUBIN TOTAL 0.5 mg/dL (0.2-1.0); BLOOD UREA NITROGEN,BUN 58 mg/dL (7-18); BUN/CREATININE RATIO 60.4 (No establ ref range); CARBON DIOXIDE,CO2 26 mmol/L (21-32); CHLORIDE,CL 104 mmol/L (98-107); CREATININE 0.96 mg/dL (0.55-1.02); GLUCOSE RANDOM 147 mg/dL (70-99); MAGNESIUM 2.1 mg/dL (1.8-2.4); PROTEIN TOTAL,TP 5.6 g/dL (6.4-8.2); SODIUM,NA 136 mmol/L (136-145)
[2024-07-13 09:28] LABS: A/G RATIO 1.33; C-REACTIVE PROTEIN < 0.50 ng/dL (<=0.50); ESTIMATED GFR 57 mL/min (>=60); ETHANOL BLOOD MEDICAL < 3 mg/dL (0)
[2024-07-13 10:00] LABS: ALANINE AMINOTRANSFERASE,ALT 17 U/L (14-59); ASPARTATE AMNIOTRANSFERASE,AST 10 U/L (15-37)
[2024-07-13 10:41] LABS: FOLIC ACID > 20.0 ng/mL (8.6-58.9)
[2024-07-13 11:48] VITALS: BP 116/55; PULSE 105
== END 2024-07-13 13:03 | disposition other institution (70) ==
LOC: DL.ED 08:17
DX: R11.2 Nausea with vomiting, unspecified (principal); I10 Essential (primary) hypertension; E78.00 Pure hypercholesterolemia, unspecified; Z95.5 Presence of coronary angioplasty implant and graft; Z88.2 Allergy status to sulfonamides; Z88.8 Allergy status to other drugs, medicaments and biological substances; Z79.02 Long term (current) use of antithrombotics/antiplatelets; Z79.899 Other long term (current) drug therapy
CPT/HCPCS: 36415; 70450; 74176; 80053; 80307; 82272; 82607; 82746; 83735; 84484; 85025; 86140; 86850; 86900; 86901; 93005; 93010; 99284; 99285

== ENCOUNTER 2024-07-13 14:24 | Emergency (ER) | payer MEDICARE, BC ==
[2024-07-13] MEDS ORDERED: Sodium Chloride 0.9% 10 ML Syringe FLUSH PRN (14:31)
[2024-07-13 14:44] LABS: BASOPHILS PERCENT AUTO 0.3 % (0.0-1.0); EOSINOPHILS PERCENT AUTO 0.2 % (1.0-3.0); HEMATOCRIT 25.9 % (37.0-47.0); HEMOGLOBIN 8.4 g/dL (12.0-16.0); LYMPHOCYTES PERCENT AUTO 20.3 % (20.5-50.1); MEAN CORPUSCULAR HGB CONC 32.4 g/dL (33.0-35.0); MEAN CORPUSCULAR VOLUME 107.9 fL (80-100); MONOCYTES PERCENT AUTO 8.4 % (2-8); NEUTROPHILS PERCENT AUTO 70.8 % (42.2-75.2); PLATELET COUNT,PLT 232 10^3/uL (150-450); WHITE BLOOD CELL COUNT,WBC 5.8 10^3/uL (5.0-10.0)
[2024-07-13 15:01] LABS: PROTHROMBIN TIME 10.4 SEC (9.0-12.0)
[2024-07-13 15:05] LABS: A/G RATIO 1.4; ALANINE AMINOTRANSFERASE,ALT 18 U/L (14-59); ALBUMIN 3.4 g/dL (3.4-5.0); ALKALINE PHOSPHATASE 32 U/L (46-116); ANION GAP 14.6 mEq/L (7-13); ASPARTATE AMNIOTRANSFERASE,AST 11 U/L (15-37); BILIRUBIN TOTAL 0.4 mg/dL (0.2-1.0); BLOOD UREA NITROGEN,BUN 66 mg/dL (7-18); BUN/CREATININE RATIO 52.4 (No establ ref range); CALCIUM 9.2 mg/dL (8.5-10.1); CARBON DIOXIDE,CO2 26 mmol/L (21-32); CHLORIDE,CL 105 mmol/L (98-107); CREATININE 1.26 mg/dL (0.55-1.02); ESTIMATED GFR 41 mL/min (>=60); GLUCOSE RANDOM 156 mg/dL (70-99); POTASSIUM,K 4.6 mmol/L (3.5-5.1); PROTEIN TOTAL,TP 5.9 g/dL (6.4-8.2); SODIUM,NA 141 mmol/L (136-145)
[2024-07-13] MEDS: Pantoprazole 40 MG Vial IVPUSH ONE (15:14)
[2024-07-13 18:05] LABS: HEMATOCRIT 21.9 % (37.0-47.0); HEMOGLOBIN 7.1 g/dL (12.0-16.0)
[2024-07-13 19:09] VITALS: PULSE 92
[2024-07-13 19:15] VITALS: BP 177/73
== END 2024-07-13 19:19 ==
LOC: DL.ED 14:24
DX: K92.2 Gastrointestinal hemorrhage, unspecified (principal); D50.0 Iron deficiency anemia secondary to blood loss (chronic); E78.00 Pure hypercholesterolemia, unspecified; I10 Essential (primary) hypertension; M54.2 Cervicalgia; Z95.5 Presence of coronary angioplasty implant and graft; Z88.2 Allergy status to sulfonamides; Z88.1 Allergy status to other antibiotic agents; Z88.8 Allergy status to other drugs, medicaments and biological substances; Z79.899 Other long term (current) drug therapy; Z79.02 Long term (current) use of antithrombotics/antiplatelets
CPT/HCPCS: 36415; 36430; 70450; 74176; 80053; 80307; 82272; 82607; 82746; 83735; 84484; 85014; 85018; 85025; 85610; 86140; 86850; 86900; 86901; 86920; 86922; 93005; 93010; 96374; 99284; 99285; J2470; P9016

== ENCOUNTER 2024-11-23 11:11 | Emergency (ER) | payer MEDICARE, BC ==
[2024-11-23 11:33] LABS: BASOPHILS PERCENT AUTO 0.2 % (0.0-1.0); EOSINOPHILS PERCENT AUTO 0.0 % (1.0-3.0); LYMPHOCYTES PERCENT AUTO 13.0 % (20.5-50.1); MONOCYTES PERCENT AUTO 8.5 % (2-8); NEUTROPHILS PERCENT AUTO 78.3 % (42.2-75.2); PLATELET COUNT,PLT 304 10^3/uL (150-450); RED BLOOD CELL COUNT 2.69 10^6/uL (4.2-5.4); WHITE BLOOD CELL COUNT,WBC 5.6 10^3/uL (5.0-10.0)
[2024-11-23 11:54] LABS: ALANINE AMINOTRANSFERASE,ALT 14.0 U/L (14-59); ASPARTATE AMNIOTRANSFERASE,AST 18.0 U/L (15-37); BILIRUBIN TOTAL 0.7 mg/dL (0.2-1.0); BLOOD UREA NITROGEN,BUN 33.0 mg/dL (7-18); CARBON DIOXIDE,CO2 26.0 mmol/L (21-32); CHLORIDE,CL 103.0 mmol/L (98-107); CREATININE 1.73 mg/dL (0.55-1.02); EST CRCL DRUG DOSING (CG) 17.44 mL/min; GLUCOSE RANDOM 155.0 mg/dL (70-99); POTASSIUM,K 2.7 mmol/L (3.5-5.1); PROTEIN TOTAL,TP 4.6 g/dL (6.4-8.2); SODIUM,NA 140.0 mmol/L (136-145)
[2024-11-23 11:55] LABS: A/G RATIO 1.0; ESTIMATED GFR 28.0 mL/min (>=60)
[2024-11-23] MEDS: Potassium Chloride 10 MEQ Tab.ER PO ONE (12:08)
[2024-11-23] MEDS: Lidocaine 2% Viscous Solution 15 ML UD PO ONE (13:11)
[2024-11-23] MEDS: Octreotide 100 MCG/ML SDV SUBCUT ONE (16:45)
[2024-11-23 17:11] LABS: BLOOD UREA NITROGEN,BUN 34.0 mg/dL (7-18); CARBON DIOXIDE,CO2 30.0 mmol/L (21-32); CHLORIDE,CL 105.0 mmol/L (98-107); CREATININE 1.64 mg/dL (0.55-1.02); EST CRCL DRUG DOSING (CG) 18.39 mL/min; GLUCOSE RANDOM 104.0 mg/dL (70-99); POTASSIUM,K 3.0 mmol/L (3.5-5.1); SODIUM,NA 141.0 mmol/L (136-145)
[2024-11-23] MEDS: diphenhydrAMINE 50 MG/ML SDV IV ONE (17:12)
[2024-11-23 17:17] LABS: ESTIMATED GFR 30.0 mL/min (>=60)
[2024-11-23 19:34] VITALS: BP 150/65; PULSE 60
== END 2024-11-23 20:44 ==
LOC: DL.ED 11:11
DX: K92.2 Gastrointestinal hemorrhage, unspecified (principal); I10 Essential (primary) hypertension; E66.9 Obesity, unspecified; E78.00 Pure hypercholesterolemia, unspecified; Z88.2 Allergy status to sulfonamides; Z88.8 Allergy status to other drugs, medicaments and biological substances; Z79.899 Other long term (current) drug therapy; Z90.710 Acquired absence of both cervix and uterus; Z90.49 Acquired absence of other specified parts of digestive tract; Z68.20 Body mass index [BMI] 20.0-20.9, adult
CPT/HCPCS: 36415; 36430; 80048; 80053; 82272; 83735; 84484; 85014; 85018; 85025; 86850; 86900; 86901; 86920; 86922; 93005; 93010; 96372; 96374; 96375; 99285; A9270; J1200; J2354; J2470; P9016

== ENCOUNTER 2024-12-04 12:47 | Emergency (ER) | payer MEDICARE, BC ==
[2024-12-04] MEDS ORDERED: Sodium Chloride 0.9% 10 ML Syringe FLUSH PRN (12:59)
[2024-12-04] MEDS: Lidocaine/EPINEPHrine/Tetracaine Soln 5 ML Each TOP ONE (13:02)
[2024-12-04 13:24] LABS: BASOPHILS PERCENT AUTO 0.3 % (0.0-1.0); EOSINOPHILS PERCENT AUTO 0.6 % (1.0-3.0); LYMPHOCYTES PERCENT AUTO 10.8 % (20.5-50.1); MONOCYTES PERCENT AUTO 6.7 % (2-8); NEUTROPHILS PERCENT AUTO 81.6 % (42.2-75.2); PLATELET COUNT,PLT 267 10^3/uL (150-450); RED BLOOD CELL COUNT 2.60 10^6/uL (4.2-5.4); WHITE BLOOD CELL COUNT,WBC 11.0 10^3/uL (5.0-10.0)
[2024-12-04 13:40] LABS: INR 0.9 (0.9-1.2)
[2024-12-04 13:44] LABS: ALANINE AMINOTRANSFERASE,ALT 10.0 U/L (14-59); ASPARTATE AMNIOTRANSFERASE,AST 10.0 U/L (15-37); BILIRUBIN TOTAL 0.5 mg/dL (0.2-1.0); BLOOD UREA NITROGEN,BUN 28.0 mg/dL (7-18); CARBON DIOXIDE,CO2 24.0 mmol/L (21-32); CHLORIDE,CL 102.0 mmol/L (98-107); CREATININE 1.98 mg/dL (0.55-1.02); EST CRCL DRUG DOSING (CG) 15.86 mL/min; GLUCOSE RANDOM 77.0 mg/dL (70-99); POTASSIUM,K 3.0 mmol/L (3.5-5.1); PROTEIN TOTAL,TP 5.0 g/dL (6.4-8.2); SODIUM,NA 136.0 mmol/L (136-145)
[2024-12-04 13:45] LABS: A/G RATIO 0.85; ESTIMATED GFR 24.0 mL/min (>=60)
[2024-12-04] MEDS: Potassium Chloride 10 MEQ Tab.ER PO ONE (14:27)
[2024-12-04 15:02] VITALS: BP 107/74; PULSE 69
== END 2024-12-04 14:56 | disposition home or self-care (01) ==
LOC: DL.ED 12:47
DX: S81.811A Laceration without foreign body, right lower leg, initial encounter (principal); I10 Essential (primary) hypertension; E78.00 Pure hypercholesterolemia, unspecified; E66.9 Obesity, unspecified; K21.9 Gastro-esophageal reflux disease without esophagitis; Z88.2 Allergy status to sulfonamides; Z88.8 Allergy status to other drugs, medicaments and biological substances; Z79.899 Other long term (current) drug therapy; Z90.49 Acquired absence of other specified parts of digestive tract; Z90.710 Acquired absence of both cervix and uterus; Z68.20 Body mass index [BMI] 20.0-20.9, adult; X58.XXXA Exposure to other specified factors, initial encounter
CPT/HCPCS: 36415; 80053; 82272; 85025; 85610; 99284; A9270-GY

== ENCOUNTER 2024-12-15 15:36 | Observation (INO) | payer MEDICARE, BC ==
[2024-12-15] MEDS: Potassium Chloride 10 MEQ Tab.ER PO ONE (15:53)
[2024-12-15 15:58] LABS: BASOPHILS PERCENT AUTO 0.2 % (0.0-1.0); EOSINOPHILS PERCENT AUTO 2.5 % (1.0-3.0); LYMPHOCYTES PERCENT AUTO 15.9 % (20.5-50.1); MONOCYTES PERCENT AUTO 7.5 % (2-8); NEUTROPHILS PERCENT AUTO 73.9 % (42.2-75.2); PLATELET COUNT,PLT 482 10^3/uL (150-450); RED BLOOD CELL COUNT 2.50 10^6/uL (4.2-5.4); WHITE BLOOD CELL COUNT,WBC 9.6 10^3/uL (5.0-10.0)
[2024-12-15 16:30] LABS: ALANINE AMINOTRANSFERASE,ALT 10 U/L (14-59); ASPARTATE AMNIOTRANSFERASE,AST 8 U/L (15-37); BILIRUBIN TOTAL 0.3 mg/dL (0.2-1.0); BLOOD UREA NITROGEN,BUN 71 mg/dL (7-18); CARBON DIOXIDE,CO2 21 mmol/L (21-32); CHLORIDE,CL 103 mmol/L (98-107); CREATININE 2.77 mg/dL (0.55-1.02); EST CRCL DRUG DOSING (CG) 10.25 mL/min; GLUCOSE RANDOM 143 mg/dL (70-99); POTASSIUM,K 3.3 mmol/L (3.5-5.1); PROTEIN TOTAL,TP 5.0 g/dL (6.4-8.2); SODIUM,NA 138 mmol/L (136-145)
[2024-12-15 16:31] LABS: A/G RATIO 0.79; ESTIMATED GFR 16 mL/min (>=60)
[2024-12-15 17:22] LABS: APPEARANCE,URINE CLOUDY (CLEAR); GLUCOSE,URINE NEGATIVE (NEGATIVE); OCCULT BLOOD,URINE MODERATE (NEGATIVE)
[2024-12-15 17:27] LABS: EPITHELIAL CELLS,URINE FEW /HPF (NOT SEEN)
[2024-12-15] MEDS ORDERED: Sennosides/Docusate Sodium 50-8.6 MG Tab PO PRN (17:53)
[2024-12-15] MEDS ORDERED: Ondansetron 4 MG/2 ML SDV IVPUSH PRN (17:53)
[2024-12-15 18:24] LABS: INR 0.9 (0.9-1.2); PTT,PARTIAL THROMBOPLSTIN TIME 24.6 SEC (22.0-34.0)
[2024-12-15 20:00] LABS: IRON,FE 24.0 ug/dL (50-170); PERCENT FE SATURATION 20.9 % (20.0-50.0)
[2024-12-15 20:07] LABS: T4 FREE 0.60 ng/dL (0.76-1.46); TSH ULTRASENSITIVE 2.31 uIU/mL (0.36-3.74)
[2024-12-15 20:11] LABS: FOLIC ACID > 20.0 ng/mL (8.6-58.9)
[2024-12-15] MEDS: Sodium Chloride 0.9% 10 ML Syringe FLUSH PRN (20:50)
[2024-12-16 06:24] LABS: PLATELET COUNT,PLT 313 10^3/uL (150-450); RED BLOOD CELL COUNT 2.24 10^6/uL (4.2-5.4); WHITE BLOOD CELL COUNT,WBC 6.4 10^3/uL (5.0-10.0)
[2024-12-16 06:29] LABS: BASOPHILS PERCENT AUTO 0.3 % (0.0-1.0); EOSINOPHILS PERCENT AUTO 4.1 % (1.0-3.0); LYMPHOCYTES PERCENT AUTO 16.5 % (20.5-50.1); MONOCYTES PERCENT AUTO 8.3 % (2-8); NEUTROPHILS PERCENT AUTO 70.8 % (42.2-75.2)
[2024-12-16 06:53] LABS: ALANINE AMINOTRANSFERASE,ALT 12.0 U/L (14-59); ASPARTATE AMNIOTRANSFERASE,AST 10.0 U/L (15-37); BILIRUBIN TOTAL 0.3 mg/dL (0.2-1.0); BLOOD UREA NITROGEN,BUN 61.0 mg/dL (7-18); CARBON DIOXIDE,CO2 21.0 mmol/L (21-32); CHLORIDE,CL 107.0 mmol/L (98-107); CREATININE 2.06 mg/dL (0.55-1.02); EST CRCL DRUG DOSING (CG) 13.84 mL/min; GLUCOSE RANDOM 99.0 mg/dL (70-99); POTASSIUM,K 2.6 mmol/L (3.5-5.1); PROTEIN TOTAL,TP 4.4 g/dL (6.4-8.2); SODIUM,NA 140.0 mmol/L (136-145)
[2024-12-16 06:54] LABS: A/G RATIO 0.76; ESTIMATED GFR 23.0 mL/min (>=60)
[2024-12-16 07:16] LABS: EOSINOPHILS PERCENT MAN 3 % (1-3); LYMPHOCYTES PERCENT MAN 13 % (20-50); MONOCYTES PERCENT MAN 6 % (2-8); SEG NEUTROPHILS PERCENT MAN 78 % (42-75)
[2024-12-16 08:45] VITALS: BP 96/44; PULSE 78
[2024-12-16] MEDS: Potassium Chloride 10 MEQ Tab.ER PO SCH (09:03)
== END 2024-12-16 09:15 ==
LOC: DL.ED 15:36 → DL.MS 17:29
PROVIDERS: ADMIT Student in an Organized Health Care Education/Training Program; ATTEND Student in an Organized Health Care Education/Training Program
DX: E87.6 Hypokalemia (principal); N30.81 Other cystitis with hematuria; N28.89 Other specified disorders of kidney and ureter; I25.10 Atherosclerotic heart disease of native coronary artery without angina pectoris; I13.0 Hypertensive heart and chronic kidney disease with heart failure and stage 1 through stage 4 chronic kidney disease, or unspecified chronic kidney disease; I50.9 Heart failure, unspecified; N18.9 Chronic kidney disease, unspecified; N17.9 Acute kidney failure, unspecified; D63.1 Anemia in chronic kidney disease; R29.810 Facial weakness; R53.1 Weakness; E88.09 Other disorders of plasma-protein metabolism, not elsewhere classified; D75.839 Thrombocytosis, unspecified; Z88.2 Allergy status to sulfonamides; Z88.8 Allergy status to other drugs, medicaments and biological substances; Z79.899 Other long term (current) drug therapy
CPT/HCPCS: 36415; 70450; 74176; 80053; 81001; 82607; 82728; 82746; 83540; 83550; 83735; 84439; 84443; 85025; 85610; 85730; 86140; 86850; 86900; 86901; 87040; 87086; 87088; 87186; 96361; 96374; 99232; 99238; 99285; A9270; G0378; J0696; J7030; 96360; 99284

== ENCOUNTER 2024-12-27 11:32 | Emergency (ER) | payer MEDICARE, BC ==
[2024-12-27] MEDS ORDERED: Sodium Chloride 0.9% 10 ML Syringe FLUSH PRN (11:50)
[2024-12-27 11:58] LABS: BASOPHILS PERCENT AUTO 0.6 % (0.0-1.0); EOSINOPHILS PERCENT AUTO 3.7 % (1.0-3.0); LYMPHOCYTES PERCENT AUTO 17.9 % (20.5-50.1); MONOCYTES PERCENT AUTO 8.2 % (2-8); NEUTROPHILS PERCENT AUTO 69.6 % (42.2-75.2); PLATELET COUNT,PLT 221 10^3/uL (150-450); RED BLOOD CELL COUNT 2.46 10^6/uL (4.2-5.4); WHITE BLOOD CELL COUNT,WBC 7.0 10^3/uL (5.0-10.0)
[2024-12-27 12:12] LABS: INR 0.9 (0.9-1.2); PTT,PARTIAL THROMBOPLSTIN TIME 25.0 SEC (22.0-34.0)
[2024-12-27 12:27] LABS: ALANINE AMINOTRANSFERASE,ALT 17 U/L (14-59); ASPARTATE AMNIOTRANSFERASE,AST 17 U/L (15-37); BILIRUBIN TOTAL 0.3 mg/dL (0.2-1.0); BLOOD UREA NITROGEN,BUN 23 mg/dL (7-18); CARBON DIOXIDE,CO2 28 mmol/L (21-32); CHLORIDE,CL 104 mmol/L (98-107); CREATININE 1.06 mg/dL (0.55-1.02); GLUCOSE RANDOM 126 mg/dL (70-99); POTASSIUM,K 4.3 mmol/L (3.5-5.1); PROTEIN TOTAL,TP 5.7 g/dL (6.4-8.2); SODIUM,NA 140 mmol/L (136-145)
[2024-12-27 12:28] LABS: A/G RATIO 0.78; ESTIMATED GFR 50 mL/min (>=60)
[2024-12-27 14:30] LABS: APPEARANCE,URINE CLEAR (CLEAR); GLUCOSE,URINE NEGATIVE (NEGATIVE); OCCULT BLOOD,URINE NEGATIVE (NEGATIVE)
[2024-12-27 14:39] LABS: EPITHELIAL CELLS,URINE FEW /HPF (NOT SEEN)
== END 2024-12-27 15:39 | disposition home or self-care (01) ==
LOC: DL.ED 11:32
DX: R55 Syncope and collapse (principal); S41.111A Laceration without foreign body of right upper arm, initial encounter; S41.112A Laceration without foreign body of left upper arm, initial encounter; S81.812A Laceration without foreign body, left lower leg, initial encounter; I10 Essential (primary) hypertension; E78.00 Pure hypercholesterolemia, unspecified; K21.9 Gastro-esophageal reflux disease without esophagitis; Z90.49 Acquired absence of other specified parts of digestive tract; Z79.899 Other long term (current) drug therapy; Z79.02 Long term (current) use of antithrombotics/antiplatelets; Z88.2 Allergy status to sulfonamides; Z88.8 Allergy status to other drugs, medicaments and biological substances; W01.198A Fall on same level from slipping, tripping and stumbling with subsequent striking against other object, initial encounter
CPT/HCPCS: 36415; 70450; 72125; 80053; 81001; 83735; 84484; 85025; 85610; 85730; 93005; 93010; 99284; 99285